=== PATIENT | male | born 1965 | race Caucasian/White ===

== ENCOUNTER 2019-01-28 15:55 | Inpatient (IN) ==
[2019-01-28] MEDS ORDERED: Aspirin 81 MG TAB.CHEW PO ONE (16:14)
[2019-01-28] MEDS ORDERED: Nitroglycerin 0.4 MG TAB.SUBL SL PRN (16:14)
[2019-01-28 16:35] LABS: Basophils # 0.1 K/mcL (0.0-0.2); Eosinophils # 0.3 K/mcL (0.0-0.6); Eosinophils % 5.5 %; Hematocrit 46.3 % (37.5-50.1); Hemoglobin 16.3 g/dL (12.9-16.9); Immature Granulocytes % 0.5 % (0-4); Lymphocytes # 1.8 K/mcL (0.6-4.6); Lymphocytes % 30.1 %; Mean Corpuscular HGB Conc 35.2 g/dL (31.6-35.5); Mean Corpuscular Hemoglobin 31.7 pg (28.0-33.3); Mean Corpuscular Volume 89.9 fL (83.0-100.0); Mean Platelet Volume 10.2 fL (9.4-12.4); Monocytes # 0.4 K/mcL (0.0-1.3); Monocytes % 6.9 %; Neutrophils # 3.3 K/mcL (1.6-8.9); Platelet Count 182 K/mcL (140-400); Red Blood Count 5.15 M/mcL (4.19-5.50); Red Cell Distribution Width 12.3 % (11.5-14.5); White Blood Count 5.8 K/mcL (4.3-11.1)
[2019-01-28 16:41] LABS: Prothrombin Time 11.5 Seconds (9.4-12.1)
[2019-01-28 16:44] LABS: Activated Partial Thrombo Time 32.4 Seconds (26.0-36.0)
[2019-01-28 16:56] LABS: Alanine Aminotransferase 21 Units/L (7-52); Albumin 4.7 g/dL (3.5-5.7); Albumin/Globulin Ratio 1.7 (1.1-2.2); Alkaline Phosphatase 48 Units/L (34-104); Aspartate Amino Transferase 21 Units/L (13-39); BUN/Creatinine Ratio 19 (6-26); Bilirubin,Direct 0.1 mg/dL (0.0-0.2); Bilirubin,Total 1.1 mg/dL (0.3-1.0); Blood Urea Nitrogen 16 mg/dL (6-20); Calcium 9.5 mg/dL (8.6-10.3); Carbon Dioxide 25 mEq/L (23-29); Chloride 102 mEq/L (98-107); Globulin 2.8 g/dL (2.4-3.5); Glucose 199 mg/dL (70-105); Lipase 38 Units/L (11-82); Osmolality,Calculated 295 (280-300); Sodium 139 mEq/L (136-145); Total Protein 7.5 g/dL (6.4-8.9); Troponin I 0.15 ng/mL (< 0.04); eGFR For African Americans > 60 (> 60); eGFR For Non-African Americans > 60 (> 60)
[2019-01-28] MEDS ORDERED: *HR* Heparin 5,000 UNIT/ML VIAL IVP PRN (16:57)
[2019-01-28] MEDS ORDERED: *HR* Heparin 5,000 UNIT/ML VIAL IVP ONE (16:57)
[2019-01-28 17:07] LABS: Heparin anti-factor XA UFH 0.01 IU/mL (0.30-0.70)
--- NOTE | 2019-01-28 17:10 | Emergency Department Note ---
Disposition Clinical Impression: NSTEMI (non-ST elevated myocardial infarction) Disposition: Admitted As Inpatient Condition: Fair Referrals: NONE,PCP [Primary Care Provider] - Time of Disposition: 18:08 Chest Pain HPI - General Chief Complaint: ED Chest Pain Stated Complaint: CP Time Seen by Provider: 01/28/19 15:57 Source: patient Mode of arrival: ambulatory Limitations: no limitations Vital Signs Reviewed: Yes Nursing Notes Reviewed: Yes - History of Present Illness HPI Narrative: 53-year-old male presented to the emergency department with chest pain. Patient does have history of four-vessel bypass he recently had Done in June they said only one vessel is still good of the bypass. Said this has been going on for a week wakes him up from sleep takes 2 nitroglycerin and then it goes away. Also occurs during exertion. Says it comes and goes randomly. He said he had earlier today this will cause him to come in. He has no nausea no vomiting. Said this feels like previous heart attacks occurred on his right side of his heart according to the patient. Patient says he has multiple since he cannot remember how many stents he has. He does take aspirin and Plavix that he has been taken them regularly. He did not take nitroglycerin today. He could does not currently have chest pain while in the emergency department this time but says it comes and goes and could randomly get any time. Severity scale (1-10): 0 - Related Data Home Medications Medication Instructions Recorded Confirmed Gabapentin [Neurontin] 800 mg PO TID 02/27/16 07/05/18 Cyclobenzaprine [Flexeril] 10 mg PO TID 07/05/18 07/05/18 Metoprolol XL (24 HR) Succ [Toprol 25 mg PO DAILY 07/05/18 07/05/18 Xl] hydrOXYzine HCl [Hydroxyzine HCl] 25 mg PO Q8H PRN 07/05/18 07/05/18 Previous Rx's Medication Instructions Recorded Aspirin Enteric Coated [Aspirin EC] 81 mg PO DAILY #30 tablet.dr 02/28/16 Nitroglycerin [Nitrostat] 0.4 mg SL PRN PRN #30 tab.subl 02/28/16 Ticagrelor [Brilinta] 90 mg PO BID #60 tablet 02/28/16 Allergies Allergy/AdvReac Type Severity Reaction Status Date / Time quinapril AdvReac Hypotension Verified 01/28/19 16:03 IVP DYE Allergy Hives Uncoded 01/28/19 16:03 All systems ED: reviewed and negative except as stated. Review of Systems: As Per HPI Chest Pain PMH - Past Medical History Medical history: Reports: cardiomyopathy, coronary artery disease, diabetes, fibromyalgia, GERD, hyperlipidemia, hypertension, myocardial infarction Surgical history: Reports: angioplasty/stent, coronary bypass (CABG) Psychiatric history: Reports: no psych history - Social History Smoking Status: Never smoker Alcohol use: Reports: none Drug use: Reports: none Physical Exam - General Limitations: no limitations General appearance: alert, in no apparent distress - Head Head exam: atraumatic, normocephalic, normal inspection - Eye Eye exam: Present: normal appearance, PERRL, EOMI - ENT ENT exam: normal exam, normal oropharynx, mucous membranes moist - Neck Neck exam: Present: normal inspection, full ROM, trachea midline - Chest Chest inspection: Present: normal inspection, symmetric chest wall rise - Respiratory Respiratory exam: Present: normal lung sounds bilaterally - Cardiovascular Cardiovascular exam: Present: regular rate, normal rhythm, normal heart sounds - Abdominal Exam Abdominal exam: Present: soft, Non-Tender, normal bowel sounds. Absent: tenderness, distention, guarding, rebound, rigidity - Extremities Exam Extremities exam: Present: normal inspection, full ROM. Absent: tenderness, pedal edema - Back Exam Back exam: Present: normal inspection, full ROM. Absent: tenderness, CVA tenderness (R), CVA tenderness (L) - Neurological Exam Neurological exam: Present: alert, oriented X3 - Skin Skin exam: Present: warm, dry, intact, normal color Course Course Narrative: Patient presents here with chest pain. We will get basic chest pain workup including troponin EKG chest x-ray CBC and BMP BNP. We will give him aspirin a nd nitroglycerin. If he has chest pain we will give the nitroglycerin. - Reevaluation(s) Reevaluation #1: First EKG came back showing some ST changes or elevations in V1 V2 but no reciprocal changes this is new compared to old EKG. So we repeat one approxim ately 45 minutes later that showed the continued ST elevations with mild changes in the inferior leads not fully depressions or several changes at this time but did have some T-wave inversions in the lateral leads V4 V5 V6. I called and spoke with Dr. Pedersen who recommended I run this by school teacher Dr. Peace who was paged this time currently awaiting his recommendations. Chest pain at this time Time: 17:00 - Consultations Consultation #1: Spoke with interventional cardiology Dr. Peace who said that he is not having active chest pain is no recent taken to the [facility] emergently at this time. Call them if anything changes she agrees with Dr. Pedersen's recommendations of medical management including heparin and nitroglycerin as needed for chest pain. Time: 17:31 Vital Signs Temperature 98.6 F 01/28/19 15:57 Pulse Rate 92 01/28/19 15:57 Respiratory Rate 20 01/28/19 15:57 Blood Pressure 148/93 01/28/19 15:57 O2 Sat by Pulse Oximetry 99 01/28/19 15:57 Temperature 97.6 F 01/28/19 19:06 Pulse Rate 85 01/28/19 19:06 Respiratory Rate 16 01/28/19 19:06 Blood Pressure 127/87 01/28/19 19:06 O2 Sat by Pulse Oximetry 96 01/28/19 19:06 Oxygen Delivery Oxygen Delivery Room Air Chest Pain - MDM Narrative Medical decision making narrative: Due to patient's cardiac history only having one good open bypass with the change in EKGs spoke with cardiology who recommended heparin therapy which we started. He still not having chest pain at this time. Spoke with interventional cardiology who again agreed did not need to go to [facility]. Started patient on heparin he did not get any nitroglycerin did receive full dose aspirin. Spoke with the hospitalist Dr. Pittman who agreed to admit the patient to their service with cardiology consultation. Patient mid in stable condition. Chest X-Ray 01/28/19 15:57 IMPRESSION: No acute process. D/ / 01/28/2019 16:37:54 Gopi Lee MD / [facility] Interpreting Provider: Gopi Lee MD - Medical Records Medical records reviewed: Yes I reviewed the patient's medical records. - Lab Data Lab results reviewed: Yes I reviewed the patient's lab results. Result diagrams: 01/28/19 18:11 01/28/19 16:03 Lab Results 01/28/19 01/28/19 01/28/19 Range/Units 16:03 16:03 16:03 WBC (4.3-11.1) K/mcL RBC (4.19-5.50) M/mcL Hgb (12.9-16.9) g/dL Hct (37.5-50.1) % MCV (83.0-100.0) fL MCH (28.0-33.3) pg MCHC (31.6-35.5) g/dL RDW (11.5-14.5) % Plt Count (140-400) K/mcL MPV (9.4-12.4) fL Immature Gran % (0-4) % Seg Neutrophils % % Lymphocytes % % Monocytes % % Eosinophils % % Basophils % % Neutrophils # (1.6-8.9) K/mcL Lymphocytes # (0.6-4.6) K/mcL Monocytes # (0.0-1.3) K/mcL Eosinophils # (0.0-0.6) K/mcL Basophils # (0.0-0.2) K/mcL PT 11.5 (9.4-12.1) Seconds INR 1.0 APTT 32.4 (26.0-36.0) Seconds Heparin Anti-Xa, Unfract 0.01 L (0.30-0.70) IU/mL Sodium 139 (136-145) mEq/L Potassium 4.0 (3.5-5.1) mEq/L Chloride 102 (98-107) mEq/L Carbon Dioxide 25 (23-29) mEq/L BUN 16 (6-20) mg/dL Creatinine 0.86 (0.70-1.30) mg/dL Est GFR ( Amer) > 60 (> 60) Est GFR (Non-Af Amer) > 60 (> 60) BUN/Creatinine Ratio 19 (6-26) Glucose 199 H (70-105) mg/dL Calculated Osmolality 295 (280-300) Calcium 9.5 (8.6-10.3) mg/dL Total Bilirubin 1.1 H (0.3-1.0) mg/dL Direct Bilirubin 0.1 (0.0-0.2) mg/dL Indirect Bilirubin 1.0 (0.0-1.2) mg/dL AST 21 (13-39) Units/L ALT 21 (7-52) Units/L Alkaline Phosphatase 48 (34-104) Units/L Troponin I 0.15 H* (< 0.04) ng/mL B-Natriuretic Peptide 133 H (Less than 100) pg/mL Serum Total Protein 7.5 (6.4-8.9) g/dL Albumin 4.7 (3.5-5.7) g/dL Globulin 2.8 (2.4-3.5) g/dL Albumin/Globulin Ratio 1.7 (1.1-2.2) Lipase 38 (11-82) Units/L 01/28/19 01/28/19 Range/Units 16:03 18:11 WBC 5.8 7.0 (4.3-11.1) K/mcL RBC 5.15 4.85 (4.19-5.50) M/mcL Hgb 16.3 15.1 (12.9-16.9) g/dL Hct 46.3 43.6 (37.5-50.1) % MCV 89.9 89.9 (83.0-100.0) fL MCH 31.7 31.1 (28.0-33.3) pg MCHC 35.2 34.6 (31.6-35.5) g/dL RDW 12.3 12.3 (11.5-14.5) % Plt Count 182 193 (140-400) K/mcL MPV 10.2 10.4 (9.4-12.4) fL Immature Gran % 0.5 0.3 (0-4) % Seg Neutrophils % 56.0 53.4 % Lymphocytes % 30.1 30.5 % Monocytes % 6.9 9.8 % Eosinophils % 5.5 5.1 % Basophils % 1.0 0.9 % Neutrophils # 3.3 3.8 (1.6-8.9) K/mcL Lymphocytes # 1.8 2.2 (0.6-4.6) K/mcL Monocytes # 0.4 0.7 (0.0-1.3) K/mcL Eosinophils # 0.3 0.4 (0.0-0.6) K/mcL Basophils # 0.1 0.1 (0.0-0.2) K/mcL PT (9.4-12.1) Seconds INR APTT (26.0-36.0) Seconds Heparin Anti-Xa, Unfract (0.30-0.70) IU/mL Sodium (136-145) mEq/L Potassium (3.5-5.1) mEq/L Chloride (98-107) mEq/L Carbon Dioxide (23-29) mEq/L BUN (6-20) mg/dL Creatinine (0.70-1.30) mg/dL Est GFR ( Amer) (> 60) Est GFR (Non-Af Amer) (> 60) BUN/Creatinine Ratio (6-26) Glucose (70-105) mg/dL Calculated Osmolality (280-300) Calcium (8.6-10.3) mg/dL Total Bilirubin (0.3-1.0) mg/dL Direct Bilirubin (0.0-0.2) mg/dL Indirect Bilirubin (0.0-1.2) mg/dL AST (13-39) Units/L ALT (7-52) Units/L Alkaline Phosphatase (34-104) Units/L Troponin I (< 0.04) ng/mL B-Natriuretic Peptide (Less than 100) pg/mL Serum Total Protein (6.4-8.9) g/dL Albumin (3.5-5.7) g/dL Globulin (2.4-3.5) g/dL Albumin/Globulin Ratio (1.1-2.2) Lipase (11-82) Units/L - Radiology Data Radiology results reviewed: Yes I reviewed the patient's radiology results. - EKG Data EKG attestation: Yes I reviewed and interpreted this EKG. EKG results narrative: EKG #1 done at 1602 review myself and attending shows sinus rhythm at a rate of 98, NC interval 55, QRS 92, QTC 456. Does have ST elevations in V2 V3 with no reciprocal changes no other T-wave abnormalities no other signs of ischemia. No signs of hypertrophy, heart strain, heart block. No WPW/Brugada/HOCM. These are new compared to old EKG done 07/05/18. EKG #2 done at 1651 review myself and attending shows sinus rhythm rate of 91, NC 170, QRS 94, QTc 445. There is continued ST elevations in V2 and V3 again with possible early changes in the inferior leads of 2 and 3 but not fully making depressions to make reciprocal changes. Also no flipped T waves in the lateral leads V4 V5 V6. This is change based off previous EKG Heart Score - Score History: Moderately Suspicious EKG: Significant ST-Depression Age: 45-65 Risk Factors: Equal/Greater than 3 risk factor or history of atherosclerotic disease Troponin: 1-3x normal limit HEART Score Total: 7
[2019-01-28] MEDS: Heparin 25,000 UNIT/250 ML D5W 25,000 UNIT/250 ML IV.SOLN IVC SCH (17:34)
[2019-01-28] MEDS ORDERED: Naloxone 0.4 MG/ML INJ IVP PRN (17:49)
--- NOTE | 2019-01-28 17:49 | Emergency Department Note ---
Disposition Clinical Impression: NSTEMI (non-ST elevated myocardial infarction) Disposition: Admitted As Inpatient Condition: Good Forms: ED Satisfaction Letter Time of Disposition: 17:49 General Adult HPI - General Chief complaint: ED Chest Pain Stated complaint: CP Time Seen by Provider: 01/28/19 15:57 Source: patient Mode of arrival: ambulatory Limitations: no limitations - History of Present Illness Pain Scale: 0 - Related Data Home Medications Medication Instructions Recorded Confirmed Gabapentin [Neurontin] 800 mg PO TID 02/27/16 07/05/18 Cyclobenzaprine [Flexeril] 10 mg PO TID 07/05/18 07/05/18 Metoprolol XL (24 HR) Succ [Toprol 25 mg PO DAILY 07/05/18 07/05/18 Xl] hydrOXYzine HCl [Hydroxyzine HCl] 25 mg PO Q8H PRN 07/05/18 07/05/18 Previous Rx's Medication Instructions Recorded Aspirin Enteric Coated [Aspirin EC] 81 mg PO DAILY #30 tablet.dr 02/28/16 Nitroglycerin [Nitrostat] 0.4 mg SL PRN PRN #30 tab.subl 02/28/16 Ticagrelor [Brilinta] 90 mg PO BID #60 tablet 02/28/16 Allergies Allergy/AdvReac Type Severity Reaction Status Date / Time quinapril AdvReac Hypotension Verified 01/28/19 16:03 IVP DYE Allergy Hives Uncoded 01/28/19 16:03 Past Medical History - Past Medical History Medical history: Reports: cardiomyopathy, coronary artery disease, diabetes, fibromyalgia, GERD, hyperlipidemia, hypertension, myocardial infarction Surgical history: Reports: angioplasty/stent, coronary bypass (CABG) Psychiatric history: Reports: no psych history - Social History Smoking Status: Never smoker Smokeless Tobacco Status: No Alcohol use: Reports: none Drug use: Reports: none Physical Exam - General Limitations: no limitations General appearance: alert, in no apparent distress Course Vital Signs Temperature 98.6 F 01/28/19 15:57 Pulse Rate 92 01/28/19 15:57 Respiratory Rate 20 01/28/19 15:57 Blood Pressure 148/93 01/28/19 15:57 O2 Sat by Pulse Oximetry 99 01/28/19 15:57 Temperature 98.6 F 01/28/19 15:57 Pulse Rate 86 01/28/19 17:35 Respiratory Rate 16 01/28/19 17:35 Blood Pressure 125/81 01/28/19 17:35 O2 Sat by Pulse Oximetry 97 01/28/19 17:35 Oxygen Delivery Oxygen Delivery Room Air Medical Decision Making - Lab Data Result diagrams: 01/28/19 16:03 01/28/19 16:03 Lab Results 01/28/19 01/28/19 01/28/19 Range/Units 16:03 16:03 16:03 WBC (4.3-11.1) K/mcL RBC (4.19-5.50) M/mcL Hgb (12.9-16.9) g/dL Hct (37.5-50.1) % MCV (83.0-100.0) fL MCH (28.0-33.3) pg MCHC (31.6-35.5) g/dL RDW (11.5-14.5) % Plt Count (140-400) K/mcL MPV (9.4-12.4) fL Immature Gran % (0-4) % Seg Neutrophils % % Lymphocytes % % Monocytes % % Eosinophils % % Basophils % % Neutrophils # (1.6-8.9) K/mcL Lymphocytes # (0.6-4.6) K/mcL Monocytes # (0.0-1.3) K/mcL Eosinophils # (0.0-0.6) K/mcL Basophils # (0.0-0.2) K/mcL PT 11.5 (9.4-12.1) Seconds INR 1.0 APTT 32.4 (26.0-36.0) Seconds Heparin Anti-Xa, Unfract 0.01 L (0.30-0.70) IU/mL Sodium 139 (136-145) mEq/L Potassium 4.0 (3.5-5.1) mEq/L Chloride 102 (98-107) mEq/L Carbon Dioxide 25 (23-29) mEq/L BUN 16 (6-20) mg/dL Creatinine 0.86 (0.70-1.30) mg/dL Est GFR ( Amer) > 60 (> 60) Est GFR (Non-Af Amer) > 60 (> 60) BUN/Creatinine Ratio 19 (6-26) Glucose 199 H (70-105) mg/dL Calculated Osmolality 295 (280-300) Calcium 9.5 (8.6-10.3) mg/dL Total Bilirubin 1.1 H (0.3-1.0) mg/dL Direct Bilirubin 0.1 (0.0-0.2) mg/dL Indirect Bilirubin 1.0 (0.0-1.2) mg/dL AST 21 (13-39) Units/L ALT 21 (7-52) Units/L Alkaline Phosphatase 48 (34-104) Units/L Troponin I 0.15 H* (< 0.04) ng/mL B-Natriuretic Peptide 133 H (Less than 100) pg/mL Serum Total Protein 7.5 (6.4-8.9) g/dL Albumin 4.7 (3.5-5.7) g/dL Globulin 2.8 (2.4-3.5) g/dL Albumin/Globulin Ratio 1.7 (1.1-2.2) Lipase 38 (11-82) Units/L 01/28/19 Range/Units 16:03 WBC 5.8 (4.3-11.1) K/mcL RBC 5.15 (4.19-5.50) M/mcL Hgb 16.3 (12.9-16.9) g/dL Hct 46.3 (37.5-50.1) % MCV 89.9 (83.0-100.0) fL MCH 31.7 (28.0-33.3) pg MCHC 35.2 (31.6-35.5) g/dL RDW 12.3 (11.5-14.5) % Plt Count 182 (140-400) K/mcL MPV 10.2 (9.4-12.4) fL Immature Gran % 0.5 (0-4) % Seg Neutrophils % 56.0 % Lymphocytes % 30.1 % Monocytes % 6.9 % Eosinophils % 5.5 % Basophils % 1.0 % Neutrophils # 3.3 (1.6-8.9) K/mcL Lymphocytes # 1.8 (0.6-4.6) K/mcL Monocytes # 0.4 (0.0-1.3) K/mcL Eosinophils # 0.3 (0.0-0.6) K/mcL Basophils # 0.1 (0.0-0.2) K/mcL PT (9.4-12.1) Seconds INR APTT (26.0-36.0) Seconds Heparin Anti-Xa, Unfract (0.30-0.70) IU/mL Sodium (136-145) mEq/L Potassium (3.5-5.1) mEq/L Chloride (98-107) mEq/L Carbon Dioxide (23-29) mEq/L BUN (6-20) mg/dL Creatinine (0.70-1.30) mg/dL Est GFR ( Amer) (> 60) Est GFR (Non-Af Amer) (> 60) BUN/Creatinine Ratio (6-26) Glucose (70-105) mg/dL Calculated Osmolality (280-300) Calcium (8.6-10.3) mg/dL Total Bilirubin (0.3-1.0) mg/dL Direct Bilirubin (0.0-0.2) mg/dL Indirect Bilirubin (0.0-1.2) mg/dL AST (13-39) Units/L ALT (7-52) Units/L Alkaline Phosphatase (34-104) Units/L Troponin I (< 0.04) ng/mL B-Natriuretic Peptide (Less than 100) pg/mL Serum Total Protein (6.4-8.9) g/dL Albumin (3.5-5.7) g/dL Globulin (2.4-3.5) g/dL Albumin/Globulin Ratio (1.1-2.2) Lipase (11-82) Units/L Attestation Statement - Attestation Attestation: I reviewed the residents documentation and agree with the residents assessment and plan of care. I have personally had face to face time with the patient. (Brief History, Brief Exam, and MDM) I personally supervised and was present for the rust/critical portions of the following procedures completed by the resident: EKG 53 year old male presents to the ED with complaints of chest pain and is now chest pain free. Brayden states that he had 4 vesse; CABG with a recent cardiac catherization in jun that showed woresning 3 vessels wit one vessel that was patent. Brayden has an evolving EKG concerning for ischemic and we have consulted Dr. Peace from interventional cardiology who thinks he will likley need a catheriztion tomorrow. heparinize and admit to medicine for NSTEMI
--- NOTE | 2019-01-28 18:12 | Internal Med History&Physical ---
Date of Encounter: 01/28/19 Time of Encounter: 18:10 Internal Medicine - H&P: HPI Chief complaint: Chest pain for a week History of present illness: Mr. Arnett is a 53 year old male with pmh of CABG , CAD in june s/p cath where he says he was only found to have one patent vessel during the cath presenting with complaints of chest pain of a week's duration. Patient describes the chest pain as squeezing and pressure like and the pain woke him up from sleep. He has taken nitroglycerins in the past week with some relief. He called his medical laboratory manager who told him to come to the ER. He denies any fevers, chills, nausea or vomiting. He admits to occasional shortness of breath. In the ER, a chest xray showed no acute process, he reportely had some new T wave inversions, and ST segment elevations in V2 and V3. Cardiology was consulted and he was started on a heparin drip. He is being admitted for further management Past Med Surg Social Fam HX - Past Medical History Medical history: cardiomyopathy, coronary artery disease, diabetes, fibromyalgia, GERD, hyperlipidemia, hypertension, myocardial infarction Psychiatric history: no psych history - Past Surgical History Surgical History: angioplasty/stent, coronary bypass (CABG) - Social History Smoking Status: Never smoker Smokeless Tobacco Status: No Alcohol use: none Drug use: none Internal Medicine - H&P: Meds RX: Gabapentin [Neurontin] 800 mg PO TID 02/27/16 [History] RX: Aspirin Enteric Coated [Aspirin EC] 81 mg PO DAILY #30 tablet.dr 02/28/16 [Rx] RX: Nitroglycerin [Nitrostat] 0.4 mg SL PRN PRN #30 tab.subl 02/28/16 [Rx] RX: Ticagrelor [Brilinta] 90 mg PO BID #60 tablet 02/28/16 [Rx] RX: Cyclobenzaprine [Flexeril] 10 mg PO TID 07/05/18 [History] RX: Metoprolol XL (24 HR) Succ [Toprol Xl] 25 mg PO DAILY 07/05/18 [History] RX: hydrOXYzine HCl [Hydroxyzine HCl] 25 mg PO Q8H PRN 07/05/18 [History] Allergy/AdvReac Type Severity Reaction Status Date / Time quinapril AdvReac Hypotension Verified 01/28/19 16:03 IVP DYE Allergy Hives Uncoded 01/28/19 16:03 All Systems PM: A 10-system review of systems was performed and is negative for pertinent fi ndings except as documented above in the HPI. - Constitutional Constitutional: no chills, no fever(s), no night sweats - EENT Eyes: no change in vision, no discharge, no pain, no photophobia Ears: no ear discharge, no ear pain, no tinnitus Nose, mouth and throat: no dysphagia, no nasal discharge, no neck pain, no sore throat - Cardiovascular Cardiovascular ROS IM: chest pain, dyspnea, no diaphoresis, no lightheadedness, no palpitations, no syncope - Respiratory Respiratory: no cough, no dyspnea, no wheezing, no excessive phlegm production - Gastrointestinal Gastrointestinal: no abdominal pain, no diarrhea, no hematemesis, no hematochezia, no melena, no nausea, no vomiting - Musculoskeletal Musculoskeletal ROS IM: no numbness, no tingling - Integumentary Integumentary IM: no rash, no unusual bruising - Neurological Neurological ROS: no confusion, no convulsions, no focal weakness, no numbness, no tingling, no tremor(s) - Hematologic/Lymphatic Hematologic/Lymphatic: no easy bruising - Constitutional Vitals: Temp Pulse Resp BP Pulse Ox 98.6 F 85 16 127/88 98 01/28/19 15:57 01/28/19 17:44 01/28/19 17:44 01/28/19 17:44 01/28/19 17:44 Exam: NAD - Head Head exam: Present: atraumatic, normocephalic - Eye Eye exam: Present: PERRL, conjuntiva pink, sclera anicteric Pupils: Present: PERRL - Neck Neck exam general surgery: Present: supple, trachea midline. Absent: lymphadenopathy - Respiratory Respiratory exam: Present: CTAB. Absent: accessory muscle use, rales, rhonchi, wheezes - Cardiovascular Cardiovascular exam: Present: RRR, +S1, +S2. Absent: diastolic murmur, gallop, rubs, systolic murmur - GI/Abdominal GI/Abdominal exam: Present: normal bowel sounds, soft, no peritoneal signs. Absent: distended, tenderness - Extremities Exam Extremities exam: Present: warm, radial pulses palpable and symmetrical. Absent: calf tenderness, cyanotic, pedal edema - Neurological Exam Neurological exam: Present: CN II-XII intact, oriented X3, no focal deficits. Absent: pronater drift, facial droop, speech deficit - Skin Skin exam: Present: dry, intact Internal Med - H&P Results - Labs CBC & Chem 7: 01/28/19 18:11 01/28/19 16:03 Labs: Short CBC 01/28/19 Range/Units 16:03 WBC 5.8 (4.3-11.1) K/mcL Hgb 16.3 (12.9-16.9) g/dL Hct 46.3 (37.5-50.1) % Plt Count 182 (140-400) K/mcL Neutrophils # 3.3 (1.6-8.9) K/mcL BMP 01/28/19 16:03 Sodium 139 Potassium 4.0 Chloride 102 Carbon Dioxide 25 BUN 16 Creatinine 0.86 Glucose 199 H Calcium 9.5 Cardiac Enzymes 01/28/19 Range/Units 16:03 Troponin I 0.15 H* (< 0.04) ng/mL Liver Function 01/28/19 Range/Units 16:03 Total Bilirubin 1.1 H (0.3-1.0) mg/dL Direct Bilirubin 0.1 (0.0-0.2) mg/dL AST 21 (13-39) Units/L ALT 21 (7-52) Units/L Alkaline Phosphatase 48 (34-104) Units/L Albumin 4.7 (3.5-5.7) g/dL - Impressions ITS Impressions Chest X-Ray 01/28/19 15:57 IMPRESSION: No acute process. D/ / 01/28/2019 16:37:54 Gopi Lee MD / [facility] Interpreting Provider: Gopi Lee MD - Assessment and Plan (1) NSTEMI (non-ST elevated myocardial infarction) Current Visit: Yes Status: Acute Assessment and plan: Pt comes in with typical chest pain in seting of CABG/ CAD with [place] in June Troponis elevated with new T wave inversions. Started on heparin drip Cardiology consulted. Continue aspirin and plavix. Obtain 2D echo. [place] in am (2) Hypertension Current Visit: Yes Status: Chronic Assessment and plan: Stable. Continue home meds Qualifiers: Hypertension type: essential hypertension Qualified Code(s): I10 - Essential (primary) hypertension (3) Ischemic cardiomyopathy Current Visit: Yes Status: Chronic Assessment and plan: Last echo showed EF 30-35% No signs of volume overload (4) DVT prophylaxis Current Visit: Yes Status: Acute Assessment and plan: Heparin drip - Time Spent With Patient Total time spent is greater than 50% in coordination of care (as documented) at patient's floor/unit and/or counseling patient:
[2019-01-28 18:28] LABS: Basophils # 0.1 K/mcL (0.0-0.2); Basophils % 0.9 %; Eosinophils # 0.4 K/mcL (0.0-0.6); Eosinophils % 5.1 %; Hematocrit 43.6 % (37.5-50.1); Hemoglobin 15.1 g/dL (12.9-16.9); Immature Granulocytes % 0.3 % (0-4); Lymphocytes # 2.2 K/mcL (0.6-4.6); Lymphocytes % 30.5 %; Mean Corpuscular HGB Conc 34.6 g/dL (31.6-35.5); Mean Corpuscular Hemoglobin 31.1 pg (28.0-33.3); Mean Corpuscular Volume 89.9 fL (83.0-100.0); Mean Platelet Volume 10.4 fL (9.4-12.4); Monocytes # 0.7 K/mcL (0.0-1.3); Monocytes % 9.8 %; Neutrophils # 3.8 K/mcL (1.6-8.9); Platelet Count 193 K/mcL (140-400); Red Blood Count 4.85 M/mcL (4.19-5.50); Red Cell Distribution Width 12.3 % (11.5-14.5); Segmented Neutrophils % 53.4 %
[2019-01-28] MEDS ORDERED: Morphine Sulfate 2 MG/ML SYRINGE IVP ONE (19:32)
[2019-01-28] MEDS ORDERED: *HR* Ticagrelor 90 MG TABLET PO SCH (21:00)
[2019-01-29 00:49] LABS: BUN/Creatinine Ratio 21 (6-26); Blood Urea Nitrogen 17 mg/dL (6-20); Carbon Dioxide 23 mEq/L (23-29); Chloride 105 mEq/L (98-107); Glucose 149 mg/dL (70-105); Magnesium 1.9 mg/dL (1.6-2.6); Osmolality,Calculated 290 (280-300); Phosphorous 3.5 mg/dL (2.7-4.5); Potassium 3.9 mEq/L (3.5-5.1); Sodium 138 mEq/L (136-145); Triglycerides 799 mg/dL (< 150); eGFR For African Americans > 60 (> 60); eGFR For Non-African Americans > 60 (> 60)
[2019-01-29 00:50] LABS: Chol/HDL Ratio 7.7 (0-4.9); Cholesterol 224 mg/dL (< 200); HDL Cholesterol 29 mg/dL (40-59)
[2019-01-29] MEDS: *HR* Heparin 5,000 UNIT/ML VIAL IVP PRN ×4 (01:01→21:03)
[2019-01-29] MEDS: Metoprolol XL (24 HR) Succ 25 MG TAB.ER.24H PO SCH (08:30)
[2019-01-29] MEDS: Aspirin Enteric Coated 81 MG Tablet PO SCH (08:30)
--- NOTE | 2019-01-29 11:27 | Cardiology Consult Note ---
Date of Encounter: 01/29/19 Time of Encounter: 11:30 Assessment and Plan (1) NSTEMI (non-ST elevated myocardial infarction) Current Visit: Yes Status: Acute A/R/B of emergent LHC dw patient including 1% chance of recurrent TX//CVA/CABG/KARLA/bleeding. Pt aware and agreeable with elective LHC. He is comfortable on heparin drip without s/sx of cardiogenic shock or murmur. Given IV dye allergy, will premedicate him overnight with steroids and plan for cath tomorrow with my colleague. TTE ordered. (2) Hypertension Current Visit: Yes Status: Chronic controlled Qualifiers: Hypertension type: essential hypertension Qualified Code(s): I10 - Essential (primary) hypertension Discussion w patient/family: The assessment and plan as outlined above was discussed with the patient and/or family members who expressed understanding and agreement. All questions were answered. Thank you for involving us in the care of your patient. Please call with any questions. History of Present Illness Consult date: 01/29/19 Consult reason: nstemi Chief complaint: chest pain History of present illness: Mr. Arnett is a 53 year old male with history of CAD sp CABG with PCI ostial proximal LCx 06/2018 and patent STONE LAD presents with crescendo exertional chest pain over last week recently requiring 2 NTG and occurring daily with minimal physical activity. He was switched from brilinta to plavix. He notes it similar to his TX with pressure, severe intensity and associated with dyspnea. He otherwise has no concerns including bleeding, melena or hematochezia. He does have an IV dye allergy. Past Med Surg Social Fam HX - Past Medical History Medical history: cardiomyopathy, coronary artery disease, diabetes, fibro myalgia, GERD, hyperlipidemia, hypertension, myocardial infarction Psychiatric history: no psych history - Past Surgical History Surgical History: angioplasty/stent, coronary bypass (CABG) - Social History Smoking Status: Never smoker Smokeless Tobacco Status: No Alcohol use: none Drug use: none - Family History Mother Living Status: Age at : 86 Cause of : old age Father Living Status: Age at : 66 Cause of : heart attack Medications and Allergies Gabapentin [Neurontin] 800 mg PO TID 02/27/16 [History] Aspirin Enteric Coated [Aspirin EC] 81 mg PO DAILY #30 tablet. 02/28/16 [Rx] Nitroglycerin [Nitrostat] 0.4 mg SL PRN PRN #30 tab.subl 02/28/16 [Rx] Ticagrelor [Brilinta] 90 mg PO BID #60 tablet 02/28/16 [Rx] Cyclobenzaprine [Flexeril] 10 mg PO TID 07/05/18 [History] Metoprolol XL (24 HR) Succ [Toprol Xl] 25 mg PO DAILY 07/05/18 [History] hydrOXYzine HCl [Hydroxyzine HCl] 25 mg PO Q8H PRN 07/05/18 [History] Allergy/AdvReac Type Severity Reaction Status Date / Time quinapril AdvReac Hypotension Verified 01/28/19 16:03 IVP DYE Allergy Hives Uncoded 01/28/19 16:03 All Systems Review: The remainder of the systems were reviewed and are negative - Constitutional Constitutional: no chills, no fever(s) - EENT Eyes: no blurred vision, no loss of vision Nose, mouth and throat: no bleeding gums, no epistaxis - Cardiovascular Cardiovascular: chest pain with exertion, dyspnea on exertion - Respiratory Respiratory: no hemoptysis, no wheezing - Gastrointestinal Gastrointestinal: no hematemesis, no hematochezia - Genitourinary Genitourinary: no hematuria, no nocturia - Musculoskeletal Musculoskeletal: no muscle cramps, no muscle weakness - Integumentary Integumentary: no rash, no unusual bruising - Neurological Neurological: no syncope, no tingling - Psychiatric Psychiatric: no hallucinations, no panic attacks - Hematological/Lymphatic Hematologic/Lymphatic: no easy bleeding, no easy bruising Physical Examination General: Conversant HEENT: Atraumatic Neck: No JVD Cardiac: Reg Rate and Rhythm Lungs: Normal Breath Sounds Neuro: Alert and responsive Abdomen: Soft Skin: No rashes noted on visualized skin Musculoskeletal: No Chest Wall Tenderness Extremities: No Edema Results 01/28/19 18:11 01/29/19 00:10 Lab Results 01/28/19 01/28/19 01/28/19 16:03 16:03 16:03 WBC Hgb Hct Plt Count INR 1.0 APTT 32.4 Sodium 139 Potassium 4.0 Chloride 102 Carbon Dioxide 25 BUN 16 Creatinine 0.86 Glucose 199 H Calcium 9.5 Magnesium Total Bilirubin 1.1 H AST 21 ALT 21 Alkaline Phosphatase 48 Troponin I 0.15 H* B-Natriuretic Peptide 133 H Lipase 38 01/28/19 01/28/19 01/29/19 16:03 18:11 00:10 WBC 5.8 7.0 Hgb 16.3 15.1 Hct 46.3 43.6 Plt Count 182 193 INR APTT Sodium Potassium Chloride Carbon Dioxide BUN Creatinine Glucose Calcium Magnesium Total Bilirubin AST ALT Alkaline Phosphatase Troponin I 0.17 H* B-Natriuretic Peptide Lipase 01/29/19 01/29/19 00:10 06:24 WBC Hgb Hct Plt Count INR APTT Sodium 138 Potassium 3.9 Chloride 105 Carbon Dioxide 23 BUN 17 Creatinine 0.82 Glucose 149 H Calcium 9.0 Magnesium 1.9 Total Bilirubin AST ALT Alkaline Phosphatase Troponin I 0.14 H* B-Natriuretic Peptide Lipase - EKG Interpretation EKG results cardiology: sinus rhythm (anteroseptal TX, old.) Consult Discharge Plan - Plan Referrals: NONE,PCP [Primary Care Provider] -
--- NOTE | 2019-01-29 12:59 | Internal Med Progress Note ---
Hospitalist Progress Note - Encounter Date of Encounter: 01/29/19 Time of Encounter: 10:00 - Subjective Interval History: No acute events overnight. Plan for cardiac cath in am - Exam Vitals: Temp Pulse Resp BP Pulse Ox 97.8 F 73 16 147/91 97 01/29/19 12:12 01/29/19 12:12 01/29/19 12:12 01/29/19 12:12 01/29/19 12:12 Exam: General appearance: Present: A&O X 3, no acute distress Head exam: Present: normocephalic Respiratory exam: Present: CTAB. Absent: accessory muscle use, rales, rhonchi, wheezes Cardiovascular exam: Present: RRR, +S1, +S2. Absent: diastolic murmur, gallop, rubs, systolic murmur GI/Abdominal exam: Soft, NT, ND, +BS Extremities exam: Absent: pedal edema Neurological exam: Present: alert, oriented X3, no focal deficits. Absent: altered - Assessment and Plan (1) NSTEMI (non-ST elevated myocardial infarction) Current Visit: Yes Status: Acute Assessment and Plan: Pt comes in with typical chest pain in seting of CABG/ CAD with [facility] in June Troponis elevated with new T wave inversions. Started on heparin drip Continue aspirin and plavix. Obtain 2D echo. Seen by interventional cardiology and plan for cath in am (2) Hypertension Current Visit: Yes Status: Chronic Assessment and Plan: Stable. Continue home meds (3) Ischemic cardiomyopathy Current Visit: Yes Status: Chronic Assessment and Plan: Last echo showed EF 30-35% No signs of volume overload (4) DVT prophylaxis Current Visit: Yes Status: Acute Assessment and Plan: Heparin drip - Time Spent with Patient Total time spent is greater than 50% in coordination of care (as documented) at patient's floor/unit and/or counseling patient: Internal Medicine: Result - Labs CBC & Chem 7: 01/28/19 18:11 01/29/19 00:10 Labs: Short CBC 01/28/19 01/28/19 Range/Units 16:03 18:11 WBC 5.8 7.0 (4.3-11.1) K/mcL Hgb 16.3 15.1 (12.9-16.9) g/dL Hct 46.3 43.6 (37.5-50.1) % Plt Count 182 193 (140-400) K/mcL Neutrophils # 3.3 3.8 (1.6-8.9) K/mcL BMP 01/28/19 01/29/19 16:03 00:10 Sodium 139 138 Potassium 4.0 3.9 Chloride 102 105 Carbon Dioxide 25 23 BUN 16 17 Creatinine 0.86 0.82 Glucose 199 H 149 H Calcium 9.5 9.0 Cardiac Enzymes 01/28/19 01/29/19 01/29/19 Range/Units 16:03 00:10 06:24 Troponin I 0.15 H* 0.17 H* 0.14 H* (< 0.04) ng/mL Liver Function 01/28/19 Range/Units 16:03 Total Bilirubin 1.1 H (0.3-1.0) mg/dL Direct Bilirubin 0.1 (0.0-0.2) mg/dL AST 21 (13-39) Units/L ALT 21 (7-52) Units/L Alkaline Phosphatase 48 (34-104) Units/L Albumin 4.7 (3.5-5.7) g/dL - ABG Interpretation ABG results: PT/INR, D-dimer PT 11.5 Seconds (9.4-12.1) 01/28/19 16:03 - Impressions Impressions Chest X-Ray 01/28/19 15:57 IMPRESSION: No acute process. D/ / 01/28/2019 16:37:54 [facility] Lee [facility] / [facility] Inter[facility] Provider: Gopi Lee MD Consult Discharge Plan - Plan Referrals: NONE,PCP [Primary Care Provider] - (2) Hypertension Qualifiers: Hypertension type: essential hypertension Qualified Code(s): I10 - Essential (primary) hypertension
[2019-01-29] MEDS: Heparin 25,000 UNIT/250 ML D5W 25,000 UNIT/250 ML IV.SOLN IVC SCH (13:45)
[2019-01-29] MEDS ORDERED: Perflutren Lipid Microsphere 1.3 ML in 0.9 % Sodium Chloride 8.7 ML IVP ONE (15:44)
[2019-01-29] MEDS: predniSONE 20 MG TABLET PO SCH (21:03)
[2019-01-30 03:45] LABS: Basophils % 0.6 %; Eosinophils % 0.6 %; Hematocrit 46.7 % (37.5-50.1); Immature Granulocytes % 0.7 % (0-4); Lymphocytes # 0.9 K/mcL (0.6-4.6); Mean Corpuscular HGB Conc 34.3 g/dL (31.6-35.5); Mean Corpuscular Hemoglobin 30.8 pg (28.0-33.3); Mean Platelet Volume 10.4 fL (9.4-12.4); Monocytes # 0.1 K/mcL (0.0-1.3); Monocytes % 1.8 %; Platelet Count 191 K/mcL (140-400); Red Blood Count 5.19 M/mcL (4.19-5.50); Red Cell Distribution Width 12.1 % (11.5-14.5); Segmented Neutrophils % 84.3 %; White Blood Count 7.1 K/mcL (4.3-11.1)
[2019-01-30 04:01] LABS: BUN/Creatinine Ratio 17 (6-26); Blood Urea Nitrogen 14 mg/dL (6-20); Calcium 9.5 mg/dL (8.6-10.3); Carbon Dioxide 20 mEq/L (23-29); Chloride 103 mEq/L (98-107); Glucose 231 mg/dL (70-105); Magnesium 1.9 mg/dL (1.6-2.6); Osmolality,Calculated 286 (280-300); Phosphorous 1.8 mg/dL (2.7-4.5); Potassium 4.7 mEq/L (3.5-5.1); Sodium 134 mEq/L (136-145); eGFR For African Americans > 60 (> 60); eGFR For Non-African Americans > 60 (> 60)
[2019-01-30] MEDS: Aspirin Enteric Coated 81 MG Tablet PO SCH (08:41)
[2019-01-30] MEDS: predniSONE 20 MG TABLET PO SCH (08:41)
[2019-01-30] MEDS: Heparin 25,000 UNIT/250 ML D5W 25,000 UNIT/250 ML IV.SOLN IVC SCH (08:41)
[2019-01-30] MEDS: Metoprolol XL (24 HR) Succ 25 MG TAB.ER.24H PO SCH (08:42)
--- NOTE | 2019-01-30 08:45 | Internal Med Progress Note ---
Hospitalist Progress Note - Encounter Date of Encounter: 01/30/19 Time of Encounter: 08:45 - Subjective Interval History: No acute events overnight - Exam Vitals: Temp Pulse Resp BP Pulse Ox 97.9 F 90 16 122/83 95 01/30/19 07:11 01/30/19 07:11 01/30/19 07:11 01/30/19 07:11 01/30/19 07:11 Exam: General appearance: Present: A&O X 3, no acute distress Head exam: Present: normocephalic Respiratory exam: Present: CTAB. Absent: accessory muscle use, rales, rhonchi, wheezes Cardiovascular exam: Present: RRR, +S1, +S2. Absent: diastolic murmur, gallop, rubs, systolic murmur GI/Abdominal exam: Soft, NT, ND, +BS Extremities exam: Absent: pedal edema Neurological exam: Present: alert, oriented X3, no focal deficits. Absent: altered - Assessment and Plan (1) NSTEMI (non-ST elevated myocardial infarction) Current Visit: Yes Status: Acute Assessment and Plan: Pt comes in with typical chest pain in seting of CABG/ CAD with [facility] in June Troponins elevated with new T wave inversions. Started on heparin drip Continue aspirin and plavix. Obtain 2D echo. Seen by interventional cardiology and plan for today (2) Hypertension Current Visit: Yes Status: Chronic Assessment and Plan: Stable. Continue home meds (3) Ischemic cardiomyopathy Current Visit: Yes Status: Chronic Assessment and Plan: Last echo showed EF 30-35% No signs of volume overload (4) DVT prophylaxis Current Visit: Yes Status: Acute Assessment and Plan: Heparin drip - Time Spent with Patient Total time spent is greater than 50% in coordination of care (as documented) at patient's floor/unit and/or counseling patient: Internal Medicine: Result - Labs CBC & Chem 7: 01/30/19 03:20 01/30/19 03:20 Labs: Short CBC 01/30/19 Range/Units 03:20 WBC 7.1 (4.3-11.1) K/mcL Hgb 16.0 (12.9-16.9) g/dL Hct 46.7 (37.5-50.1) % Plt Count 191 (140-400) K/mcL Neutrophils # 6.0 (1.6-8.9) K/mcL BMP 01/30/19 03:20 Sodium 134 L Potassium 4.7 Chloride 103 Carbon Dioxide 20 L BUN 14 Creatinine 0.83 Glucose 231 H Calcium 9.5 - ABG Interpretation ABG results: PT/INR, D-dimer PT 11.5 Seconds (9.4-12.1) 01/28/19 16:03 - Impressions Impressions Echocardiogram 01/29/19 18:09 Impressions: Despite the use of contrast, evaluation of LV function was difficult. Overall, LVEF appears 35%. Segmental left ventricular systolic dysfunction. Moderately dilated left ventricle. Atypical septal motion consistent with post-operative status. Right ventricle was not well visualized. Grossly, it is mildly dilated with normal function. Unable to estimate RVSP due to lack of TR jet. No obvious significant valvular dysfunction. Left Ventricular Wall Motion: Rest Echo Findings The apex, apical inferior, apical anterior, mid anterior, apical septal, apical lateral and mid anterior septal sierra were hypokinetic. All other wall segments showed normal motion. Findings: Study Quality * Technically sub-optimal due to poor echocardiographic windows. ECG Findings * Normal sinus rhythm. Left Ventricle * Despite the use of contrast, evaluation of LV function was difficult. Overall, LVEF appears 35%. * Segmental left ventricular systolic dysfunction. * Moderately dilated left ventricle. * Atypical septal motion consistent with post-operative status. Right Ventricle * Right ventricle was not well visualized. Grossly, it is mildy dilated with normal function. Left Atrium * Moderately dilated left atrium. Right Atrium * Normal right atrial size. Interatrial Septum * Interatrial septum not well evaluated. Aortic Valve * Aortic valve not well visualized. * No aortic stenosis. * No aortic regurgitation. Mitral Valve * Mild mitral annular calcification * No mitral regurgitation. * No mitral stenosis. Tricuspid Valve * Normal tricuspid valve structure and function. * No tricuspid regurgitation. * Unable to estimate RVSP due to lack of TR jet. Pulmonic Valve * Pulmonic valve not well visualized. Aorta * Normally sized aortic root. Pericardium * The pericardium appears normal. IVC * The IVC is not well evaluated. Pulmonary Artery * Pulmonary artery not well visualized. Consult Discharge Plan - Plan Referrals: NONE,PCP [Primary Care Provider] - (2) Hypertension Qualifiers: Hypertension type: essential hypertension Qualified Code(s): I10 - Essential (primary) hypertension
[2019-01-30] MEDS: *HR* Heparin 5,000 UNIT/ML VIAL IVP PRN (11:37)
[2019-01-30] MEDS ORDERED: Heparin 1,000 UNITS/500 mL 500 ML ONE (15:20)
[2019-01-30] MEDS ORDERED: *HR* Heparin 10,000 UNIT/10 ML VIAL ONE (15:20)
[2019-01-30] MEDS ORDERED: Iopamidol 125 ML INFUS..BTL ONE ×3 (15:20→16:53)
[2019-01-30] MEDS ORDERED: 0.9 % Sodium Chloride 1,000 ML ONE ×2 (15:20→20:38)
[2019-01-30] MEDS ORDERED: Nitroglycerin 1,000 MCG/10 ML VIAL IV ONE (15:20)
--- NOTE | 2019-01-30 15:32 | Pre-Sedation Evaluation ---
Pre-sedation evaluation - Pre-sedation checklist Date of procedure: 01/30/19 Procedure: [facility] Recent Vitals: Last Vital Signs Temp 97.6 F 01/30/19 11:13 Pulse 97 01/30/19 11:13 Resp 16 01/30/19 11:13 BP 122/76 01/30/19 11:13 Pulse Ox 94 01/30/19 11:13 H&P (including ROS) documented in medical record: Yes Previous reaction to sedatives/anesthetics: No Dietary Status: NPO after Midnight Airway Assessment: Patient can open mouth completely, TMJ function normal, Micrognathia (under-bite, receding chin) absent, Neck with adequate range of mot ion Dentition: No loose teeth or bridges Possible difficult airway: No ASA Classification *see protocol: CLASS II-Mild systemic disease Plan of Care: Pt appropriate candidate for procedure/moderate/conscious sedation, Risks/benefits of procedure/sedation discussed w/ patient/family Cardiac Registry (Cardio Only) - Functional Capacity Functional Capacity: < 4 METS - Clincal Frailty Scale Clinical Frailty Scale: Vulnerable
[2019-01-30] MEDS ORDERED: *HR* Midazolam HCl 2 MG/2 ML VIAL ONE (15:41)
[2019-01-30] MEDS ORDERED: *HR* FentaNYL (PF) 100 MCG/2 ML VIAL ONE (15:41)
[2019-01-30] MEDS ORDERED: methylPREDNISolone 125 MG/2 ML VIAL ONE (15:51)
[2019-01-30] MEDS ORDERED: Nitroglycerin Spray 4.9 GM BOTTLE ONE (16:07)
[2019-01-30] MEDS ORDERED: Nitroglycerin 25 MG/250 ML INFUS..BTL IVC ONE (16:07)
[2019-01-30] MEDS ORDERED: *HR* Bivalirudin 250 MG VIAL IVC ONE ×2 (16:33→16:34)
--- NOTE | 2019-01-30 18:14 | Invasive Diagnostic Lab Proc ---
Name: Hector Arnett Date of Study: 01/30/2019 Date: 1965 Ht: 68.0in Medical Record#: [id number] Age: 53 Wt: 264.55lb Gender: Male BSA: 2.3 Order #: [id number] BMI: 40.23 Physicians Procedure Physician: Day Painter MD, [facility] Referring MD: Referring MD: Staff Name Position Time In Edvin Sullivan RN Probate Paralegal 03:43 PM Jerry Farah RN Monitor 03:43 PM Anna Mejias RT (R) Scrub 03:44 PM Day Lloyd RT (R) Scrub 03:44 PM Indications Indication ACS > 24 hrs Procedures Performed Procedure L HRT ART/GRFT ANGIO PRQ CARD MATTHEW STENT W/ANGIO 1 VSL Pre-Procedure Checklist Informed consent is complete signed and on chart. H&P is on chart. ID band is on and ID verified with patient. Patient NPO for procedure The procedure was described for the patient and questions were answered. ECG is on chart. Plan of Care Patient will tolerate the procedure without complications. Adequate level of comfort will be maintained. Hemodynamics will remain stable Patient will recover from procedure without complications. Respiratory function will be maintained. Cardiac rhythm will remain stable. Patient temperature will be maintained. Patient and/or family have verbalized understanding of the procedure. Patient Education Chief Complaint/Reason for Test: Cardiac Cath Developmental Category: Adult (18-64 years) Developmentally Appropriate for Age: Yes Learning Barriers: None Education Needs: Procedure Education Method: Verbal Information Taught: Cardiac Cath Educational Evaluation: Able to repeat information Intravenous Access Time IV Size Location DC'd Fluid/Drip Rate Units RN 20g 1 1/4" Patent On Arrival Rt Arm 0.9NaCl 25 ml/hr Allergies quinapril IVP DYE IV DYE Vital Signs Time BP (mmHg) HR (bpm) O2 Sat. RR (bpm) LOC 122 / 83 90 95 % 16 5 = Fully awake and oriented or at pre-proc level 03:50 PM / % 5 = Fully awake and oriented or at pre-proc level 03:50 PM / % 4 = Oriented but drowsy 04:05 PM / % 4 = Oriented but drowsy 04:20 PM / % 5 = Fully awake and oriented or at pre-proc level 05:16 PM 135 / 93 107 97 % 19 03:52 PM 134 / 104 126 99 % 20 03:57 PM 165 / 119 125 100 % 15 04:01 PM 171 / 124 132 100 % 20 04:06 PM 169 / 125 130 100 % 17 04:12 PM 161 / 109 123 100 % 22 04:16 PM 90 / 58 101 97 % 18 04:19 PM 95 / 58 109 94 % 25 04:21 PM 89 / 60 103 94 % 20 04:26 PM 97 / 62 107 93 % 31 04:31 PM 112 / 72 104 96 % 27 04:36 PM 120 / 80 108 95 % 30 04:41 PM 132 / 89 110 96 % 31 04:46 PM 129 / 82 111 94 % 30 04:51 PM 119 / 62 106 94 % 33 04:56 PM 128 / 86 106 95 % 29 05:01 PM 126 / 84 110 94 % 25 05:30 PM 142 / 99 106 96 % 20 5 = Fully awake and oriented or at pre-proc level Procedural Medications Time Medication Dose Units Method Given By 03:51 PM Oxygen 2 L/min nasal cannula Edvin Sullivan RN 03:54 PM Versed 1 mg Intravenous Edvin Sullivan RN 03:54 PM Fentanyl 25 mcg Intravenous Edvin Sullivan RN 03:54 PM Benadryl 25 mg Intravenous Edvin Sullivan RN 03:55 PM Solu-medrol 125 mg Intravenous Edvin Sullivan RN 04:02 PM Versed 1 mg Intravenous Edvin Sullivan RN 04:02 PM Fentanyl 25 mcg Intravenous Edvin Sullivan RN 04:07 PM Nitroglycerin 1 spray Sublingual Edvin Sullivan RN 04:09 PM Nitroglycerin 10 ml/hr Intravenous Edvin Sullivan RN 04:11 PM Fentanyl 25 mcg Intravenous Edvin Sullivan RN 04:14 PM Lidocaine 2% 20 ml Subcutaneous Day Painter MD, FACC 04:31 PM Angiomax 0.75mg/kg bolus: 18 ml Intravenous Edvin Sullivan RN 04:31 PM Angiomax 1.75mg/kg/hr: 42 ml Intravenous Edvin Sullivan RN 04:45 PM Nitroglycerin 200 mcg Intracoronary Day Painter MD, FACC 04:59 PM Plavix 300 mg Orally Edvin Sullivan RN ASA Classification: CLASS II- Mild systemic disease (i.e. well-controlled diabetes, hypertension, asthma, cigarette smoking) Kena Score Preprocedure Postprocedure Activity 2- Moves 4 extremities sustained head lift Activity 2- Moves 4 extremities sustained head lift Circulation 2- SBP +/= 20 points of pre-anesthetic level Circulation 2- SBP +/= 20 points of pre-anesthetic level Consciousness 2- Awake and alert oriented x 3 Consciousness 2- Awake and alert oriented x 3 O2 Saturation 2- Able to maintain O2 satruation of 92% on room air O2 Saturation 2- Able to maintain O2 satruation of 92% on room air Respiratory 2- Able to deep breathe and cough well Respiratory 2- Able to deep breathe and cough well Total Score 10 Total Score 10 Contrast Agent: Isovue Diagnostic Contrast: 257 ml Total Contrast: 257 ml Fluoro Dose: 144 mGy Procedure Log Time Note Enter By 03:40 PM Pt arrived to greens laborer 2 at 15:40 oparker 03:43 PM Edvin Sullivan RN Position: Probate Paralegal Time in: 15:43 oparker 03:43 PM Jerry Farah RN Position: Monitor Time in: 15:43 oparker 03:44 PM Anna Mejias RT (R) Position: Scrub Time in: 15:44 oparker 03:44 PM Day Lloyd RT (R) Position: Scrub Time in: 15:44 oparker 03:44 PM Patient charges- Angio tray pack, Navilyst 3mm J, Pulse Oximetry and ACIST tubing and transducer oparker 03:47 PM Recorded ECG: NM=663 Condition=Condition 1 03:49 PM Physician arrived 15:49 oparker 03:49 PM Meet and greet completed oparker 03:49 PM Sign in performed according to hospital policy. Informed consent was obtained. oparker 03:50 PM CathStat 03:50 PM Time: 15:50 Patient comfortable and pain free: Yes oparker 03:50 PM Time: 15:50LOC: 5 = Fully awake and oriented or at pre-proc level oparker 03:50 PM Vitals capture started with the following parameters, Patient=Adult, Interval=5 min, Initial Nspjmvlm=824 mmHg, Deflation Rate=3 mmHg, Cuff placed on Right Arm 03:51 PM Procedure start 15:51 oparker 03:51 PM Time: 15:51 Oxygen on at 2 L/min per nasal cannula by Edvin Sullivan RN oparker 03:52 PM PK=029 bpm, BBSJ=497/104 mmhg, SpO2=99.0 %, Resp=20 B/min 03:52 PM Hair removed from procedure site in procedure lab using clippers. Bilateral groin prepped with Chloraprep by Day Lloyd (R), then patient was draped. Skin intact. oparker 03:54 PM Time: 15:54 Versed 1 mg Intravenous Given by Edvin Sullivan RN [email or web address] 03:54 PM Time: 15:54 Fentanyl 25 mcg Intravenous Given by Edvin Sullivan RN [email or web address] 03:55 PM Time: 15:54 Benadryl 25 mg Intravenous Given by Edvin Sullivan RN [email or web address] 03:55 PM Time: 15:55 Solu-medrol 125 mg Intravenous Given by Edvin Sullivan RN [email or web address] 03:57 PM IL=758 bpm, OOJI=155/119 mmhg, ToN6=865.0 %, Resp=15 B/min 03:58 PM patient's chest pain is at a 5 out of 10 oparker 03:58 PM ASA Class CLASS II- Mild systemic disease (i.e. well-controlled diabetes, hypertension, asthma, cigarette smoking) oparker 04:01 PM FI=043 bpm, BNHF=671/124 mmhg, CvO4=867.0 %, Resp=20 B/min 04:02 PM Time: 16:02 Versed 1 mg Intravenous Given by Edvin Sullivan RN opaleatha 04:03 PM Time: 16:02 Fentanyl 25 mcg Intravenous Given by Edvin Sullivan RN [email or web address] 04:05 PM NIBP STAT measurement started. 04:05 PM Time: 15:50LOC: 4 = Oriented but drowsy oparker 04:05 PM Time: 15:50 Patient comfortable and pain free: Yes oparker 04:06 PM OT=438 bpm, GOGE=398/125 mmhg, PmX3=981.0 %, Resp=17 B/min 04:08 PM Time: 16:07 Nitroglycerin 1 spray Sublingual Given by Edvin Sullivan RN 04:09 PM Time: 16:09 Nitroglycerin 10 ml/hr Intravenous Given by Edvin Sullivan RN 04:10 PM NIBP STAT measurement started. 04:10 PM Time out was performed according to hospital policy. Conscious sedation and anesthesia was achieved (see medication log with in this report above) oparker 04:11 PM Time: 16:11 Fentanyl 25 mcg Intravenous Given by Edvin Sullivan RN oparker 04:12 PM JQ=559 bpm, UMIG=420/109 mmhg, BlC9=816.0 %, Resp=22 B/min 04:13 PM patient rates chest pain 3 out of 10 oparker 04:14 PM Time: 16:14 20 ml Lidocaine 2% to left groin Subcutaneous Given by Day Painter MD, [facility] oparker 04:15 PM Access obtained by percutaneous puncture. 5Fr 10cm Terumo [place] sheath placed in left Femoral artery. [id number] oparker 04:16 PM 0.035 150cm Navilyst 3mmJ wire [id number] oparker 04:16 PM 5Fr FL 4 catheter inserted over the wire DN oparker 04:16 PM RG=911 bpm, NIBP=90/58 mmhg, SpO2=97.0 %, Resp=18 B/min 04:17 PM Pressure channel 1 zeroed. 04:17 PM Recorded Pressure: Ao, HR=85, Condition=Condition 1 (Aorta) Ao 62/48/54 04:18 PM Nitro shut off oparker 04:18 PM LCA angiography performed in multiple views. oparker 04:19 PM Catheter removed oparker 04:19 PM NIBP STAT measurement started. 04:19 PM 5Fr FR 4 catheter inserted over the wire DN oparker 04:19 PM MW=198 bpm, NIBP=95/58 mmhg, SpO2=94.0 %, Resp=25 B/min 04:20 PM Recorded Pressure: Ao, FH=305, Condition=Condition 1 (Aorta) Ao 73/61/66 04:20 PM Time: 16:05 Patient comfortable and pain free: Yes oparker 04:20 PM Time: 16:05LOC: 4 = Oriented but drowsy oparker 04:21 PM RCA angiography performed in multiple views. oparker 04:21 PM Catheter removed oparker 04:21 PM FW=921 bpm, NIBP=89/60 mmhg, SpO2=94.0 %, Resp=20 B/min 04:22 PM 5Fr IM catheter inserted over the wire [id number] oparker 04:23 PM Left NICOLLE to the LAD angio performed in multiple views. oparker 04:23 PM Recorded Pressure: Ao, VC=041, Condition=Condition 1 (Aorta) Ao 80/68/74 04:25 PM Catheter removed oparker 04:25 PM 5Fr Pigtail catheter inserted over the wire [facility] oparker 04:25 PM Catheter crossed the aortic valve and was selectively placed in the left ventricle. Pressures recorded on pullback for left heart catheterization. oparker 04:25 PM Recorded Pressure: LV, RB=541, Condition=Condition 1 (Left Ventricle) LV 96/-2/7 04:25 PM Bolus angiogram of left Ventricle complete: 8 ml/sec for a total of 24 mls oparker 04:25 PM Recorded Pressure: LV, Ao, GA=352, Condition=Condition 1 (Left Ventricle) LV 86/42/61, (Aorta) Ao 69/58/64 04:26 PM JX=391 bpm, NIBP=97/62 mmhg, SpO2=93.0 %, Resp=31 B/min 04:27 PM Catheter removed oparker 04:27 PM Inflation device was opened. oparker 04:31 PM Sheath exchanged for a 6 Fr 10 cm Clowdy Destination sheath [id number] oparker 04:31 PM LZ=800 bpm, OMKG=207/72 mmhg, SpO2=96.0 %, Resp=27 B/min 04:31 PM Time: 16:31 Angiomax 0.75mg/kg bolus: 18 ml Intravenous Given by Edvin Sullivan RN Dela Cruz pump oparker 04:32 PM Time: 16:31 Angiomax 1.75mg/kg/hr: 42 ml Intravenous Given by Edvin Sullivan RN Dela Cruz pump oparker 04:33 PM .014 Prowater 180cm guide wire across target lesion- successful. reused? No oparker 04:33 PM 6Fr JR 4 Kincaid Bright-Tip guide catheter was used to cannulate the PCI vessel successfully. reused? No oparker 04:34 PM Lesion found in Mid RCA. Pre Stenosis: 99 Pre SERGEI Flow: 3: Complete and Brisk Flow/Perfusion oparker 04:34 PM Right Coronary, Right Posterior Descending Arteries with Right Posterolateral and Acute Marginal branches with 99 % stenosis. If graft is supplying this area, 0 % stenosis oparker 04:34 PM Recorded Pressure: Ao, OR=242, Condition=Condition 1 (Aorta) Ao 95/68/81 04:35 PM 2.5 mm x 20 mm Emerge Monorail balloon across target lesion- successful. reused? No oparker 04:35 PM Time: 16:20 Patient comfortable and pain free: Yes oparker 04:35 PM Time: 16:20LOC: 5 = Fully awake and oriented or at pre-proc level oparker 04:36 PM CP=679 bpm, AKQM=908/80 mmhg, SpO2=95.0 %, Resp=30 B/min 04:38 PM Balloon inflated @ 14 radha for 30 seconds oparker 04:38 PM Recorded Pressure: Ao, KF=375, Condition=Condition 1 (Aorta) Ao 91/77/85 04:39 PM Balloon catheter removed intact. oparker 04:40 PM 3.5mm x 28mm Synergy drug-eluting stent across target lesion- successful Lot #[id number] oparker 04:41 PM Recorded Pressure: Ao, IH=452, Condition=Condition 1 (Aorta) Ao 109/74/90 04:41 PM TP=361 bpm, DZFS=878/89 mmhg, SpO2=96.0 %, Resp=31 B/min 04:43 PM Stent deployed @ 12 radha for 30 seconds oparker 04:43 PM Stent balloon reinflated @ 16 radha for 15 seconds oparker 04:44 PM Stent delivery system removed intact. oparker 04:44 PM Recorded Pressure: Ao, KV=488, Condition=Condition 1 (Aorta) Ao 115/75/91 04:45 PM Time: 16:45 Nitroglycerin 200 mcg Intracoronary Given by Day Painter MD, [facility] oparker 04:46 PM UY=779 bpm, NCNJ=222/82 mmhg, SpO2=94.0 %, Resp=30 B/min 04:48 PM 2.25mm x 12mm Synergy drug-eluting stent across target lesion- successful Lot #[id number] oparker 04:51 PM EF=060 bpm, HWFI=827/62 mmhg, SpO2=94.0 %, Resp=33 B/min 04:52 PM Recorded Pressure: Ao, IA=520, Condition=Condition 1 (Aorta) Ao 95/75/84 04:55 PM Stent deployed @ 11 radha for 30 seconds oparker 04:55 PM Stent balloon reinflated @ 12 radha for 10 seconds oparker 04:56 PM Stent delivery system removed intact. oparker 04:56 PM TF=980 bpm, MJAG=135/86 mmhg, SpO2=95.0 %, Resp=29 B/min 04:56 PM Recorded Pressure: Ao, GL=668, Condition=Condition 1 (Aorta) Ao 105/69/84 04:58 PM Guide wire removed intact. oparker 04:58 PM Guide catheter removed intact. oparker 04:59 PM Bolus angiogram of right Femoral complete: 4 ml/sec for a total of 7 mls oparker 04:59 PM Time: 16:59 Plavix 300 mg Orally Given by Edvin Sullivan RN oparker 05:01 PM Procedure completed at 17:01 01/30/2019 oparker 05:01 PM OD=613 bpm, FAPR=913/84 mmhg, SpO2=94.0 %, Resp=25 B/min 05:01 PM Isovue 370 - 200ml,3 Bottle(s) used. oparker 05:03 PM Did you address SERGEI flow and Dominance? YesCoronary Dominance: right oparker 05:03 PM Sign out completed: Radiation Dose 1159.03 mGy, 144 Gy/cm2 Fluoro Time: 9.6 Isovue 370 - 200ml contrast 257 ml given by Day Painter MD, [facility]. Complications: None. The patient was discharged out of the manager lab in stable condition. Sedation minutes 67. Cardiac Rehab Consult needed: Yes. Confirmed administered medications: Yes oparker 05:04 PM Sheath left in place to be pulled on floor/holding areaV+Pad oparker 05:04 PM Estimated Blood Loss: less than 20cc oparker 05:04 PM Post ECG Sinus Tachycardia oparker 05:04 PM Post Blood Pressure 126/84 oparker 05:04 PM 17:04 Post Pulses Bilateral DP 1+ oparker 05:05 PM Information taught Cardiac Cath, V+ Pad, and CONVEX GRINDER/Stent oparker 05:05 PM Education needs Procedure, Plan of Care, and Disease Process oparker 05:05 PM Learning barriers :None oparker 05:05 PM Education Methods Verbal oparker 05:05 PM Education evaluation Able to repeat information oparker 05:05 PM Site status No bleeding/ No Hematoma - Lt Groin as reported by Magalie, Anna G. RT (R) at 17:05 oparker 05:05 PM Opsite applied oparker 05:05 PM Family placed in consult room. oparker 05:08 PM Report given to Sydney AGUILAR Pt taken to Holding room Room #3. 17:08 oparker 05:08 PM Patient out of room: 17:08 oparker 05:10 PM Lesion found in Distal LMCA. Pre Stenosis: 40 Pre SERGEI Flow: oparker 05:10 PM Lesion found in Proximal LAD. Pre Stenosis: 100 Pre SERGEI Flow: oparker 05:10 PM Lesion found in Mid LAD. Pre Stenosis: 99 Pre SERGEI Flow: oparker 05:11 PM Lesion found in 1st Marginal. Pre Stenosis: 40 Pre SERGEI Flow: oparker 05:11 PM Lesion found in Proximal RCA. Pre Stenosis: 40 Pre SERGEI Flow: oparker 05:11 PM Lesion found in Mid RCA. Pre Stenosis: 99 Pre SERGEI Flow: oparker 05:11 PM Lesion found in Right PDA. Pre Stenosis: 99 Pre SERGEI Flow: 2: Partial Flow/Perfusion (> 1 but < 3) oparker 05:12 PM Left Main Coronary Artery with 40% stenosis oparker 05:12 PM Proximal Left Anterior Descending Coronary Artery with 100% stenosis. If graft is supplying this territory, 0 % stenosis. oparker 05:12 PM Mid/Distal Left Anterior Descending Coronary Artery and diagonal branches with 99% stenosis. If graft is supplying this area, 0 % stenosis oparker 05:12 PM Circumflex, Obtuse Marginal, Left Posterior Descending, and Left Posterolateral Coronary Arteries with 40 % stenosis. If graft is supplying this area, 100 % stenosis oparker 05:12 PM Right Coronary, Right Posterior Descending Arteries with Right Posterolateral and Acute Marginal branches with 99 % stenosis. If graft is supplying this area, 0 % stenosis oparker 05:48 PM Report given to Jamia VAZQUEZ Pt taken to ICU Room #3. 17:48 kmavis Complications Complication None Hemodynamics Pressures Site Systolic/A Wave Diastolic/V Wave Mean AO 62 48 54 AO 73 61 66 AO 80 68 74 LV 96 -2 7 LV 86 42 61 AO 69 58 64 AO 95 68 81 AO 91 77 85 AO 109 74 90 AO 115 75 91 AO 95 75 84 AO 105 69 84 Post Procedure Information Blood Pressure: 126/84 mmHg Rhythm: Sinus Tachycardia Post procedural instructions were given Site Checks Time Location Status Staff Sheath In? Note 05:05 PM Lt Groin No bleeding/ No Hematoma Anna Mejias RT (R) Yes 05:16 PM Lt Groin No bleeding/ No Hematoma Sydney Simmons RT (R) Yes 05:30 PM Lt Groin No bleeding/ No Hematoma Jes Waterman RN Yes Pulses Time Site Pre-Procedure Post-Procedure Note Bilateral DP & PT 2+ Bilateral radial 2+ 5:04:00 PM Bilateral DP 1+ 01/30/2019 5:16:00 PM Bilateral DP & PT 1+ Updated by Jes Waterman RN on 01/30/2019 6:05:53 PM electronically signed on 01/30/2019 6:06:38 PM with status of Final
[2019-01-30] MEDS ORDERED: *HR* Atropine Sulfate 1 MG/10 ML SYRINGE ONE (20:07)
[2019-01-31 05:28] LABS: Basophils % 0.1 %; Hematocrit 45.9 % (37.5-50.1); Hemoglobin 15.6 g/dL (12.9-16.9); Immature Granulocytes % 0.6 % (0-4); Lymphocytes # 1.1 K/mcL (0.6-4.6); Lymphocytes % 6.2 %; Mean Corpuscular Hemoglobin 30.2 pg (28.0-33.3); Mean Platelet Volume 10.4 fL (9.4-12.4); Monocytes # 0.6 K/mcL (0.0-1.3); Monocytes % 3.6 %; Neutrophils # 15.3 K/mcL (1.6-8.9); Platelet Count 223 K/mcL (140-400); Red Blood Count 5.16 M/mcL (4.19-5.50); Red Cell Distribution Width 12.3 % (11.5-14.5); Segmented Neutrophils % 89.5 %
[2019-01-31 05:29] LABS: White Blood Count 17.1 K/mcL (4.3-11.1)
[2019-01-31 05:49] LABS: BUN/Creatinine Ratio 18 (6-26); Blood Urea Nitrogen 16 mg/dL (6-20); Calcium 9.3 mg/dL (8.6-10.3); Carbon Dioxide 19 mEq/L (23-29); Chloride 101 mEq/L (98-107); Glucose 263 mg/dL (70-105); Magnesium 1.9 mg/dL (1.6-2.6); Osmolality,Calculated 290 (280-300); Phosphorous 3.2 mg/dL (2.7-4.5); Potassium 4.1 mEq/L (3.5-5.1); Sodium 135 mEq/L (136-145); eGFR For African Americans > 60 (> 60); eGFR For Non-African Americans > 60 (> 60)
[2019-01-31] MEDS ORDERED: *HR* Dextrose 50 % in Water (Syg) 50 ML SYRINGE IVP PRN (08:54)
[2019-01-31] MEDS ORDERED: D5% in Water 1,000 ML IVC PRN (08:54)
[2019-01-31] MEDS ORDERED: Dextrose Gel 15 GM/37.5 ML TUBE PO PRN ×2 (08:54)
[2019-01-31] MEDS: Aspirin Enteric Coated 81 MG Tablet PO SCH (09:18)
[2019-01-31] MEDS: Metoprolol XL (24 HR) Succ 25 MG TAB.ER.24H PO SCH (09:18)
--- NOTE | 2019-01-31 09:49 | Internal Med Progress Note ---
Hospitalist Progress Note - Encounter Date of Encounter: 01/31/19 Time of Encounter: 11:45 - Subjective Interval History: The patient is a 53-year-old male who presented to [facility] ED on week of gradually progressive and worsening chest pain. 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 The patient states that with the pain that he has been having nitroglycerin has helped to relieve his pain, however he notes that it has been randomly occurring but appears to be worsening with exertion. Patient states he called his hide worker for further recommendations who stated that he should come to the ER at this time. Patient states that this pain does feel identical to his previous heart attacks. Patient currently is on aspirin and Plavix for anticoagulation - Exam Vitals: Temp Pulse Resp BP Pulse Ox 97.6 F 93 20 148/92 95 01/31/19 09:04 01/31/19 06:00 01/31/19 06:00 01/31/19 06:00 01/31/19 06:00 - Time Spent with Patient Total time spent is greater than 50% in coordination of care (as documented) at patient's floor/unit and/or counseling patient: Internal Medicine: Result - Labs CBC & Chem 7: 01/31/19 03:19 01/31/19 03:19 Labs: Short CBC 01/31/19 Range/Units 03:19 WBC 17.1 H D (4.3-11.1) K/mcL Hgb 15.6 (12.9-16.9) g/dL Hct 45.9 (37.5-50.1) % Plt Count 223 (140-400) K/mcL Neutrophils # 15.3 H (1.6-8.9) K/mcL BMP 01/31/19 03:19 Sodium 135 L Potassium 4.1 Chloride 101 Carbon Dioxide 19 L BUN 16 Creatinine 0.90 Glucose 263 H Calcium 9.3 - ABG Interpretation ABG results: PT/INR, D-dimer PT 11.5 Seconds (9.4-12.1) 01/28/19 16:03 Consult Discharge Plan - Plan Referrals: NONE,PCP [Primary Care Provider] -
--- NOTE | 2019-01-31 11:14 | Electrocardiograph Report ---
[address] [place], [place] [address] Test Date: 2019-01-30 Pat Name: Hector Arnett Department: 109 Room: 03 Gender: M Meter Setter: : 1965 Requested By: Day Painter Order Number: [id number] Reading MD: Faisal Brock Measurements Intervals [place] Rate: 113 P: 56 MA: 190 QRS: 95 QRSD: 104 T: 243 QT: 330 QTc: 397 Interpretive Statements Sinus tachycardia Probable lateral infarct, age indeterminate Probable anteroseptal infarct, recent Electronically Signed On 01-31-2019 11:13:17 EDT by Faisal Brock
--- NOTE | 2019-01-31 11:54 | Cardiology Progress Note ---
Date of Encounter: 01/31/19 Time of Encounter: 09:00 Assessment and Plan (1) NSTEMI (non-ST elevated myocardial infarction) Current Visit: Yes Status: Acute Per cardiology: -NSTEMI s/p [facility] yesterday with PCI to RCA with MATTHEW, 1/3 patent bypass grafts. -Denies chest pain. -On asa, plavix, statin, BB. Educated on dual anti-platelet therapy uninterrupted for at least one year, states understanding. -Left groin access site with mild ecchymosis, no hematoma. Access site management education reviewed with patient, states understanding. -Cardiology will sign off, will arrange outpatient follow up. -Risk factor modification stressed with patient. (2) Ischemic cardiomyopathy Current Visit: Yes Status: Chronic Per cardiology: -LVEF 35%, similar to previous, has AICD. -ON bb. Allergy to juan inhibitor. Not on ARB due to patient's refusal, states hypotension at home. Educated on recs for ARB, states understanding. -Euvolemic on exam. -Continue BB. (3) Hyperlipidemia Current Visit: Yes Status: Acute Per cardiology: -Cholesterol significantly elevated. -Had been on crestor 5 weekly. -Patient has been started on daily crestor, and agreeable to take. Qualifiers: Hyperlipidemia type: mixed hyperlipidemia Qualified Code(s): E78.2 - Mixed hyperlipidemia Discussion w patient/family: The assessment and plan as outlined above was discussed with the patient who expressed understanding and agreement. All questions were answered. Thank you for involving us in the care of your patient. Please call with any questions. Discussed and reviewed with . Subjective Principal diagnosis: NSTEMI Interval history: Patient is s/p [facility] yesterday with PCI. Denies chest pain. Objective Vital Signs, Last 4 Hours Temp 01/31/19 09:04 97.6 F Vital Signs Temperature 98.6 F 01/28/19 15:57 Pulse Rate 92 01/28/19 15:57 Respiratory Rate 01/28/19 15:57 Blood Pressure 148/93 01/28/19 15:57 O2 Sat by Pulse Oximetry 99 01/28/19 15:57 Temperature 97.6 F 01/31/19 09:04 Pulse Rate 91 01/31/19 07:15 Respiratory Rate 01/31/19 07:15 Blood Pressure 117/64 01/31/19 07:15 O2 Sat by Pulse Oximetry 96 01/31/19 07:15 Oxygen Delivery Oxygen Delivery Room Air General: Conversant, No Apparent Distress HEENT: Atraumatic, Normocephaly, Mucus Membranes Moist Neck: No JVD, Normal carotid pulses Cardiac: Reg Rate and Rhythm, Normal S1 and S2, No Murmur Lungs: Normal Breath Sounds, No Wheeze, Rales, Rhonchi Neuro: Alert and responsive, No focal deficits noted Abdomen: Soft, Non-Tender Skin: No rashes noted on visualized skin, Other (Left groin access site with mild ecchymosis, no hematoma. ) Musculoskeletal: No Chest Wall Tenderness Extremities: No Clubbing, No Cyanosis, No Edema, Normal Pulses Results 01/31/19 03:19 01/31/19 03:19 Lab Results ITS Impressions Chest X-Ray 01/28/19 15:57 IMPRESSION: No acute process. D/ / 01/28/2019 16:37:54 Gopi Lee MD / [facility] Interpreting Provider: Gopi Lee MD Echocardiogram 01/29/19 18:09 Impressions: Despite the use of contrast, evaluation of LV function was difficult. Overall, LVEF appears 35%. Segmental left ventricular systolic dysfunction. Moderately dilated left ventricle. Atypical septal motion consistent with post-operative status. Right ventricle was not well visualized. Grossly, it is mildly dilated with normal function. Unable to estimate RVSP due to lack of TR jet. No obvious significant valvular dysfunction. Left Ventricular Wall Motion: Rest Echo Findings The apex, apical inferior, apical anterior, mid anterior, apical septal, apical lateral and mid anterior septal sierra were hypokinetic. All other wall segments showed normal motion. Findings: Study Quality * Technically sub-optimal due to poor echocardiographic windows. ECG Findings * Normal sinus rhythm. Left Ventricle * Despite the use of contrast, evaluation of LV function was difficult. Overall, LVEF appears 35%. * Segmental left ventricular systolic dysfunction. * Moderately dilated left ventricle. * Atypical septal motion consistent with post-operative status. Right Ventricle * Right ventricle was not well visualized. Grossly, it is mildy dilated with normal function. Left Atrium * Moderately dilated left atrium. Right Atrium * Normal right atrial size. Interatrial Septum * Interatrial septum not well evaluated. Aortic Valve * Aortic valve not well visualized. * No aortic stenosis. * No aortic regurgitation. Mitral Valve * Mild mitral annular calcification * No mitral regurgitation. * No mitral stenosis. Tricuspid Valve * Normal tricuspid valve structure and function. * No tricuspid regurgitation. * Unable to estimate RVSP due to lack of TR jet. Pulmonic Valve * Pulmonic valve not well visualized. Aorta * Normally sized aortic root. Pericardium * The pericardium appears normal. IVC * The IVC is not well evaluated. Pulmonary Artery * Pulmonary artery not well visualized. Active Medications Aspirin (Aspirin Ec) 81 mg PO DAILY [facility] Stop: 07/31/19 09:01 Last Admin: 01/31/19 09:18 Dose: 81 mg Documented by: Clopidogrel Bisulfate (Plavix) 75 mg PO DAILY [facility] Stop: 07/31/19 09:01 Last Admin: 01/31/19 09:18 Dose: 75 mg Documented by: Dextrose/Water (Dextrose 50% (Syg)) 25 ml IVP AD PRN PRN Reason: Hypoglycemia Stop: 08/02/19 08:55 Glucagon (Glucagen) 1 mg IM ONCE PRN PRN Reason: Hypoglycemia Stop: 08/02/19 08:55 Glucose (Gluctose) 15 gm PO ONCE PRN PRN Reason: Hypoglycemia Stop: 08/02/19 08:55 Glucose (Gluctose) 30 gm PO ONCE PRN PRN Reason: Hypoglycemia Stop: 08/02/19 08:55 Dextrose (Dextrose 5%) 1,000 mls @ 100 mls/hr IVC .Q10H PRN PRN Reason: HYPOGLYCEMIA Stop: 08/02/19 08:55 Insulin Human Lispro (Humalog) 0 units SQ Q6HR [facility]; Protocol Stop: 08/02/19 12:01 Metoprolol Succinate (Toprol Xl) 25 mg PO DAILY [facility] Stop: 07/31/19 09:01 Last Admin: 01/31/19 09:18 Dose: Not Given Documented by: Naloxone HCl (Narcan) 0.4 mg IVP Q2MPRN PRN PRN Reason: SEE COMMENTS Stop: 07/30/19 17:50 Nitroglycerin (Nitroglycerin) 0.4 mg SL Q5MIN PRN PRN Reason: Chest Pain Stop: 07/30/19 16:15 Rosuvastatin Calcium (Crestor) 40 mg PO HS [place] Stop: 08/01/19 21:01 Last Admin: 01/30/19 20:58 Dose: Not Given Documented by: Laboratory Tests 01/31/19 01/31/19 03:19 03:19 Hgb 15.6 Creatinine 0.90 - Imaging and Cardiology Chest Xray: report reviewed Echo: report reviewed Cardiac cath: report reviewed Consult Discharge Plan - Plan Referrals: NONE,PCP [Primary Care Provider] -
[2019-01-31] MEDS ORDERED: Insulin LISPRO 300 UNITS/3 ML VIAL SQ SCH (12:00)
--- NOTE | 2019-01-31 12:00 | Discharge Summary ---
<Lauri Gonzalez - Last Filed: 01/31/19 11:53> - NOTES TO OUTPATIENT PROVIDER Notes to Outpatient Provider: Patient is status post left heart catheter with severe stenosis of previously placed stent repaired Date of Encounter: 01/31/19 Time of Encounter: 11:53 Hospital course: Mr. Arnett is a 53 year old male with past medical history of CAD who underwent a quadruple bypass CABG in June of this year. He presented to [facility] ED on 01/28/2019 for one week history of chest pains worsened with exertion relieved with nitroglycerin. The patient states this felt like his prior heart attacks and called cardiology who told him to present to the emergency department. Patient had no acute ischemic change noted but was taken to [facility] by Dr. Day Painter where he was found to have severe stenosis of prior stent. The stenosis was repaired in the [facility] the patient was sent to ICU for further evaluation and management. Upon my initial evaluation this morning patient is awake alert oriented he is in no acute distress or no lateralizing signs physical exam is unremarkable he has no concerns or complaints and states he wants to go home. Spoke with cardiology who states they will sign off and are agreeable to patient's discharge with follow-up within 1 week. Discharge discussed with: patient Time spent discussing smoking cessation with patient: 3 to 10 minutes - Time Spent with Patient Total time spent providing and/or coordinating discharge services: Time spent: Less than 30 minutes Specific discharge activities: Follow-up with your primary care physician and cardiology within one week. Continue all prescribed home medications. - Discharge Medications Prescriptions: No Action Aspirin Enteric Coated [Aspirin EC] 81 mg PO DAILY #30 tablet. Nitroglycerin [Nitrostat] 0.4 mg SL PRN PRN #30 tab.subl PRN Reason: Chest Pain Cyclobenzaprine [Flexeril] 10 mg PO TID PRN PRN Reason: Muscle Spasm hydrOXYzine HCl [Hydroxyzine HCl] 25 mg PO Q8H PRN PRN Reason: Itching Rosuvastatin Calcium [Crestor] 5 mg PO FR Clopidogrel [Plavix] 75 mg PO DAILY Home Medications: Aspirin Enteric Coated [Aspirin EC] 81 mg PO DAILY #30 tablet. 02/28/16 [Rx] Nitroglycerin [Nitrostat] 0.4 mg SL PRN PRN #30 tab.subl 02/28/16 [Rx] Cyclobenzaprine [Flexeril] 10 mg PO TID PRN 07/05/18 [History] hydrOXYzine HCl [Hydroxyzine HCl] 25 mg PO Q8H PRN 07/05/18 [History] Clopidogrel [Plavix] 75 mg PO DAILY 01/29/19 [History] Rosuvastatin Calcium [Crestor] 5 mg PO FR 01/29/19 [History] Allergies/Adverse Reactions: Allergy/AdvReac Type Severity Reaction Status Date / Time quinapril AdvReac Hypotension Verified 01/28/19 16:03 IVP DYE Allergy Hives Uncoded 01/28/19 16:03 Date of admission: 01/29/19 16:23 Primary care physician: PCP NONE Consults: 01/29/19 08:24 Consult to Cardiology [CONS] Routine Comment: Consulting Provider: Cardiology Jayna Reason for Consult: chest pain on heparin drip Call Completed: Yes 01/30/19 08:32 Consult to Cardiac Rehabilitation-Phase1 [CONS] Routine Comment: Reason for Consult: NSTEMI Call Completed: No Discharging clinician: Lauri Gonzalez Anticipated date of discharge: 01/31/19 - Constitutional Vitals: Temp Pulse Resp BP Pulse Ox 97.6 F 91 20 117/64 96 01/31/19 09:04 01/31/19 07:15 01/31/19 07:15 01/31/19 07:15 01/31/19 07:15 General appearance: Present: A&O X 3, no acute distress, answers questions appropriately Exam: Upon my initial evaluation the patient is awake, alert, engaged conversation answering questions appropriately. There are no overt lateralizing signs. The patient is sitting up in chair next to hospital bed watching television. Pupils are equal round reactive to light and accommodation, the patient tracks well with EOMI intact, trachea is midline and supple, patient's skin appears pink, warm, dry, cardiopulmonary auscultation is unremarkable, peripheral pulses are strong, there is no evidence of peripheral edema. Patient states she has no concerns or complaints at this time would like to go home. - Head Head exam: Present: atraumatic - Patient Status Disposition: Home, Self-Care Condition: Good Functional capacity at discharge: independent ambulation Overall status at discharge: patient is back to baseline - Discharge Instructions Instructions: Myocardial Infarction (DC), Myocardial Infarction (GEN), Chest Pain (DC), Left Heart Catheterization (DC) Follow Up With: NONE,PCP [Primary Care Provider] - - Diet and Activity Activity: increase activity as tolerated Diet: advance to your usual diet, low salt diet <Abimael Francis - Last Filed: 01/31/19 16:35> Date of Encounter: 01/31/19 Time of Encounter: 09:00 Hospital course: Mr. Arnett is a 53 year old male - Time Spent with Patient I discussed the patient case with Dr. Gonzalez, primary nurse, and MDR team. Additionally, I discussed the case with cardiology. I also saw the patient independently and examined him myself. Patient felt great this morning and back to baseline. His exam was benign and unremarkable. Patient will be discharged home today with close cardiology follow-up. I confirmed discharge plans with cardiology prior to discharge. Date of admission: 01/29/19 16:23 Primary care physician: PCP NONE Consults: 01/29/19 08:24 Consult to Cardiology [CONS] Routine Comment: Consulting Provider: Chandler Dorantes Reason for Consult: chest pain on heparin drip Call Completed: Yes 01/30/19 08:32 Consult to Cardiac Rehabilitation-Phase1 [CONS] Routine Comment: Reason for Consult: NSTEMI Call Completed: No - Constitutional Vitals: Temp Pulse Resp BP Pulse Ox 98.3 F 98 19 101/67 98 01/31/19 12:31 01/31/19 12:19 01/31/19 12:19 01/31/19 12:19 01/31/19 12:19 General appearance: Present: A&O X 3, no acute distress - ENT ENT exam: Present: mucous membranes moist, normal exam - Neck Neck exam general surgery: Present: supple - Respiratory Respiratory exam: Present: CTAB. Absent: chest wall tenderness, rales, rhonchi, wheezes - Cardiovascular Cardiovascular exam: Present: RRR, +S1, +S2. Absent: diastolic murmur, systolic murmur - GI/Abdominal GI/Abdominal exam: Present: normal bowel sounds, soft. Absent: guarding, hepatomegaly, mass, rebound, splenomegaly, tenderness - Extremities Exam Extremities exam: Present: normal capillary refill, warm, radial pulses palpable and symmetrical. Absent: calf tenderness, pedal edema, tenderness - Back Exam Back exam: Absent: CVA tenderness (L), CVA tenderness (R) - Neurological Exam Neurological exam: Present: alert, CN II-XII intact, oriented X3, no focal deficits - Attending Attestation As noted above, I saw patient independently in addition to the whole ICU team. I discussed with cardiology and confirmed discharge plans. Patient was discharged home from ICU today with close cardiology follow-up. Other than my documented exam findings and above notes, I agree with Dr. Gonzalez's assessment and plan.
[2019-01-31 12:29] VITALS: BP 101/67
--- NOTE | 2019-02-01 11:20 | Electrocardiograph Report ---
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
--- NOTE | 2019-02-01 11:21 | Electrocardiograph Report ---
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
--- NOTE | 2019-02-01 15:00 | Electrocardiograph Report ---
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
== END 2019-01-31 14:25 | disposition home or self-care (01) | DRG 246 ==
LOC: EMEROOARM 15:55 → 3BNU 15:55 → ICNU 01-30 17:51
PROVIDERS: ADMIT Internal Medicine; ATTEND Internal Medicine

== ENCOUNTER 2020-02-27 06:55 | Inpatient (IN) ==
[2020-02-27] MEDS ORDERED: Nitroglycerin 0.4 MG TAB.SUBL SL PRN (07:45)
[2020-02-27] MEDS ORDERED: Aspirin 81 MG TAB.CHEW PO ONE (07:45)
[2020-02-27 07:54] LABS: Basophils # 0.1 K/mcL (0.0-0.2); Basophils % 0.9 %; Eosinophils # 0.3 K/mcL (0.0-0.6); Eosinophils % 4.6 %; Hematocrit 45.7 % (37.5-50.1); Hemoglobin 15.2 g/dL (12.9-16.9); Immature Granulocytes % 0.3 % (0-4); Lymphocytes # 2.1 K/mcL (0.6-4.6); Lymphocytes % 30.5 %; Mean Corpuscular HGB Conc 33.3 g/dL (31.6-35.5); Mean Corpuscular Volume 93.3 fL (83.0-100.0); Monocytes # 0.5 K/mcL (0.0-1.3); Monocytes % 7.2 %; Neutrophils # 3.9 K/mcL (1.6-8.9); Platelet Count 183 K/mcL (140-400); Red Cell Distribution Width 12.4 % (11.5-14.5); Segmented Neutrophils % 56.5 %; White Blood Count 6.8 K/mcL (4.3-11.1)
[2020-02-27 08:06] LABS: BUN/Creatinine Ratio 16 (6-26); Blood Urea Nitrogen 17 mg/dL (6-20); Calcium 9.5 mg/dL (8.6-10.3); Carbon Dioxide 26 mEq/L (23-29); Chloride 106 mEq/L (98-107); Glucose 151 mg/dL (70-105); Osmolality,Calculated 294 (280-300); Potassium 3.7 mEq/L (3.5-5.1); Sodium 140 mEq/L (136-145); eGFR For African Americans > 60 (> 60); eGFR For Non-African Americans > 60 (> 60)
[2020-02-27 08:09] LABS: Troponin I 0.06 ng/mL (< 0.04)
[2020-02-27] MEDS ORDERED: Ondansetron 4 MG/2 ML VIAL IVP PRN (08:38)
[2020-02-27] MEDS ORDERED: Naloxone 0.4 MG/ML INJ IVP PRN (08:38)
[2020-02-27] MEDS ORDERED: Perflutren Lipid Microsphere 1.3 ML in 0.9 % Sodium Chloride 8.7 ML IVP PRN (08:41)
[2020-02-27] MEDS ORDERED: *HR* Heparin 5,000 UNIT/ML VIAL IVP PRN (09:04)
[2020-02-27] MEDS ORDERED: *HR* Heparin 5,000 UNIT/ML VIAL IVP ONE (09:04)
[2020-02-27] MEDS ORDERED: *HR* Labetalol 20 MG/4 ML SYRINGE IVP ONE (09:05)
[2020-02-27 09:15] LABS: Prothrombin Time 11.5 Seconds (9.4-12.1)
[2020-02-27 09:17] LABS: Activated Partial Thrombo Time 32.2 Seconds (26.0-36.0)
[2020-02-27 09:18] LABS: Heparin anti-factor XA UFH < 0.04 IU/mL (0.30-0.70)
[2020-02-27 10:37] LABS: Hematocrit 42.9 % (37.5-50.1); Mean Corpuscular HGB Conc 32.6 g/dL (31.6-35.5); Mean Corpuscular Hemoglobin 29.9 pg (28.0-33.3); Mean Corpuscular Volume 91.5 fL (83.0-100.0); Mean Platelet Volume 10.1 fL (9.4-12.4); Platelet Count 186 K/mcL (140-400); Red Blood Count 4.69 M/mcL (4.19-5.50); Red Cell Distribution Width 12.4 % (11.5-14.5)
[2020-02-27] MEDS: Heparin 25,000UNIT/250ML 1/2NS 25,000 UNIT/250 ML IV.SOLN IVC SCH (10:59)
[2020-02-27] MEDS: Metoprolol XL (24 HR) Succ 25 MG TAB.ER.24H PO SCH (12:54)
[2020-02-27] MEDS: *HR* Heparin 5,000 UNIT/ML VIAL IVP PRN (20:16)
[2020-02-27] MEDS ORDERED: predniSONE 20 MG TABLET PO ONE (21:00)
[2020-02-28 04:22] LABS: Basophils % 0.4 %; Eosinophils % 0.1 %; Hematocrit 46.8 % (37.5-50.1); Immature Granulocytes % 0.4 % (0-4); Lymphocytes # 0.8 K/mcL (0.6-4.6); Lymphocytes % 10.3 %; Mean Corpuscular HGB Conc 33.8 g/dL (31.6-35.5); Mean Corpuscular Hemoglobin 30.9 pg (28.0-33.3); Mean Corpuscular Volume 91.6 fL (83.0-100.0); Mean Platelet Volume 10.1 fL (9.4-12.4); Monocytes # 0.1 K/mcL (0.0-1.3); Monocytes % 1.2 %; Neutrophils # 6.7 K/mcL (1.6-8.9); Platelet Count 191 K/mcL (140-400); Red Blood Count 5.11 M/mcL (4.19-5.50); Red Cell Distribution Width 12.4 % (11.5-14.5); Segmented Neutrophils % 87.6 %; White Blood Count 7.6 K/mcL (4.3-11.1)
[2020-02-28 04:26] LABS: Hemoglobin 15.8 g/dL (12.9-16.9)
[2020-02-28 04:43] LABS: BUN/Creatinine Ratio 19 (6-26); Blood Urea Nitrogen 15 mg/dL (6-20); Calcium 9.3 mg/dL (8.6-10.3); Carbon Dioxide 21 mEq/L (23-29); Chloride 104 mEq/L (98-107); Cholesterol 201 mg/dL (< 200); Glucose 216 mg/dL (70-105); HDL Cholesterol 40 mg/dL (40-59); LDL Cholesterol,Calculated 140 mg/dL (< 100); Magnesium 1.9 mg/dL (1.6-2.6); Osmolality,Calculated 289 (280-300); Potassium 4.5 mEq/L (3.5-5.1); Sodium 136 mEq/L (136-145); Triglycerides 103 mg/dL (< 150); eGFR For African Americans > 60 (> 60); eGFR For Non-African Americans > 60 (> 60)
[2020-02-28] MEDS: *HR* Heparin 5,000 UNIT/ML VIAL IVP PRN (07:04)
[2020-02-28] MEDS: Aspirin Enteric Coated 81 MG Tablet PO SCH (07:50)
[2020-02-28] MEDS: Metoprolol XL (24 HR) Succ 25 MG TAB.ER.24H PO SCH (07:51)
[2020-02-28] MEDS: Heparin 25,000UNIT/250ML 1/2NS 25,000 UNIT/250 ML IV.SOLN IVC SCH (07:52)
[2020-02-28] MEDS ORDERED: predniSONE 20 MG TABLET PO ONE (08:00)
[2020-02-28 08:53] LABS: Estimated Average Glucose 151 mg/dl
[2020-02-28] MEDS ORDERED: 0.9 % Sodium Chloride 1,000 ML ONE (13:25)
[2020-02-28] MEDS ORDERED: Nitroglycerin 1,000 MCG/10 ML VIAL IV ONE (13:26)
[2020-02-28] MEDS ORDERED: Heparin 1,000 UNITS/500 mL 500 ML ONE (13:26)
[2020-02-28] MEDS ORDERED: ISOVUE-370 200 ML INFUS..BTL ONE ×2 (13:26→14:42)
[2020-02-28] MEDS ORDERED: *HR* Heparin 10,000 UNIT/10 ML VIAL ONE (13:26)
[2020-02-28] MEDS ORDERED: *HR* FentaNYL (PF) 100 MCG/2 ML VIAL ONE (13:49)
[2020-02-28] MEDS ORDERED: *HR* Midazolam HCl 2 MG/2 ML VIAL ONE (13:49)
[2020-02-28] MEDS: Acetaminophen 325 MG TABLET PO PRN (16:07)
[2020-02-29] MEDS: Acetaminophen 325 MG TABLET PO PRN (00:02)
[2020-02-29 01:14] LABS: Basophils % 0.2 %; Eosinophils % 0.2 %; Hematocrit 43.3 % (37.5-50.1); Hemoglobin 14.9 g/dL (12.9-16.9); Immature Granulocytes % 0.4 % (0-4); Lymphocytes # 2.3 K/mcL (0.6-4.6); Lymphocytes % 15.3 %; Mean Corpuscular HGB Conc 34.4 g/dL (31.6-35.5); Mean Corpuscular Hemoglobin 31.2 pg (28.0-33.3); Mean Corpuscular Volume 90.8 fL (83.0-100.0); Mean Platelet Volume 9.5 fL (9.4-12.4); Monocytes % 6.6 %; Neutrophils # 11.8 K/mcL (1.6-8.9); Platelet Count 195 K/mcL (140-400); Red Blood Count 4.77 M/mcL (4.19-5.50); Red Cell Distribution Width 12.5 % (11.5-14.5); Segmented Neutrophils % 77.3 %; White Blood Count 15.3 K/mcL (4.3-11.1)
[2020-02-29 01:33] LABS: BUN/Creatinine Ratio 18 (6-26); Blood Urea Nitrogen 16 mg/dL (6-20); Calcium 8.8 mg/dL (8.6-10.3); Carbon Dioxide 22 mEq/L (23-29); Chloride 104 mEq/L (98-107); Glucose 185 mg/dL (70-105); Magnesium 1.8 mg/dL (1.6-2.6); Osmolality,Calculated 288 (280-300); Phosphorous 2.5 mg/dL (2.7-4.5); Potassium 3.7 mEq/L (3.5-5.1); Sodium 136 mEq/L (136-145); eGFR For African Americans > 60 (> 60); eGFR For Non-African Americans > 60 (> 60)
[2020-02-29 07:42] VITALS: BP 107/70
[2020-02-29] MEDS: Aspirin Enteric Coated 81 MG Tablet PO SCH (08:01)
[2020-02-29] MEDS: Metoprolol XL (24 HR) Succ 25 MG TAB.ER.24H PO SCH (08:02)
[2020-02-29] MEDS: Heparin 25,000UNIT/250ML 1/2NS 25,000 UNIT/250 ML IV.SOLN IVC SCH (11:10)
== END 2020-02-29 13:12 | disposition home or self-care (01) | DRG 247 ==
LOC: CDU 06:55 → EMEROOARM 06:55 → SUATTDRO 08:52 → CDU 09:18 → 3BNU 18:48
PROVIDERS: ADMIT Internal Medicine; ATTEND Internal Medicine

== ENCOUNTER 2020-05-29 16:33 | Inpatient (IN) ==
[2020-05-29] MEDS ORDERED: 0.9 % Sodium Chloride 1,000 ML ONE ×3 (16:47→17:21)
[2020-05-29] MEDS ORDERED: *HR* Ticagrelor 90 MG TABLET ONE (16:47)
[2020-05-29] MEDS ORDERED: *HR* Ticagrelor 90 MG TABLET PO ONE (16:47)
[2020-05-29] MEDS ORDERED: *HR* Heparin 5,000 UNIT/ML VIAL ONE (16:47)
[2020-05-29] MEDS ORDERED: Aspirin 81 MG TAB.CHEW PO ONE (16:47)
[2020-05-29] MEDS ORDERED: Aspirin 81 MG TAB.CHEW ONE (16:47)
[2020-05-29] MEDS ORDERED: *HR* Heparin 5,000 UNIT/ML VIAL IVP STA (16:49)
[2020-05-29 17:09] LABS: Basophils # 0.1 K/mcL (0.0-0.2); Basophils % 0.8 %; Eosinophils # 0.1 K/mcL (0.0-0.6); Eosinophils % 2.2 %; Hematocrit 42.9 % (37.5-50.1); Hemoglobin 14.2 g/dL (12.9-16.9); Immature Granulocytes % 0.6 % (0-4); Lymphocytes # 1.6 K/mcL (0.6-4.6); Mean Corpuscular HGB Conc 33.1 g/dL (31.6-35.5); Mean Corpuscular Volume 90.5 fL (83.0-100.0); Mean Platelet Volume 9.9 fL (9.4-12.4); Monocytes # 0.5 K/mcL (0.0-1.3); Monocytes % 7.7 %; Neutrophils # 4.2 K/mcL (1.6-8.9); Platelet Count 199 K/mcL (140-400); Red Blood Count 4.74 M/mcL (4.19-5.50); Red Cell Distribution Width 12.2 % (11.5-14.5); Segmented Neutrophils % 63.7 %; White Blood Count 6.5 K/mcL (4.3-11.1)
[2020-05-29 17:16] LABS: INR 1.1; Prothrombin Time 12.6 Seconds (9.4-12.1)
[2020-05-29 17:19] LABS: Activated Partial Thrombo Time 27.2 Seconds (26.0-36.0)
[2020-05-29] MEDS ORDERED: *HR* FentaNYL (PF) 100 MCG/2 ML VIAL ONE (17:19)
[2020-05-29] MEDS ORDERED: *HR* Midazolam HCl 2 MG/2 ML VIAL ONE (17:19)
[2020-05-29] MEDS ORDERED: *HR* Heparin 10,000 UNIT/10 ML VIAL ONE (17:20)
[2020-05-29] MEDS ORDERED: Nitroglycerin 1,000 MCG/10 ML VIAL IV ONE (17:20)
[2020-05-29] MEDS ORDERED: Heparin 1,000 UNITS/500 mL 500 ML ONE (17:20)
[2020-05-29] MEDS ORDERED: ISOVUE-370 200 ML INFUS..BTL ONE (17:20)
[2020-05-29 17:42] LABS: BUN/Creatinine Ratio 14 (6-26); Blood Urea Nitrogen 12 mg/dL (6-20); Carbon Dioxide 26 mEq/L (23-29); Chloride 104 mEq/L (98-107); Glucose 140 mg/dL (70-105); Magnesium 1.6 mg/dL (1.6-2.6); Osmolality,Calculated 292 (280-300); Potassium 3.8 mEq/L (3.5-5.1); Sodium 140 mEq/L (136-145); Troponin I 0.04 ng/mL (< 0.04); eGFR For African Americans > 60 (> 60); eGFR For Non-African Americans > 60 (> 60)
[2020-05-29] MEDS ORDERED: methylPREDNISolone 125 MG/2 ML VIAL ONE (17:44)
[2020-05-29] MEDS ORDERED: Furosemide 40 MG/4 ML VIAL ONE (18:13)
[2020-05-29] MEDS ORDERED: Perflutren Lipid Microsphere 1.3 ML in 0.9 % Sodium Chloride 8.7 ML IVP PRN (18:31)
[2020-05-29] MEDS: Furosemide 40 MG/4 ML VIAL IVP SCH (20:12)
[2020-05-29] MEDS: *HR* Ticagrelor 90 MG TABLET PO SCH (20:12)
[2020-05-29] MEDS ORDERED: *HR* Dextrose 50 % in Water (Vial) 50 ML VIAL IVP PRN (22:56)
[2020-05-29] MEDS ORDERED: D5% in Water 1,000 ML IVC PRN (22:56)
[2020-05-29] MEDS ORDERED: Dextrose Gel 15 GM/37.5 ML TUBE PO PRN ×2 (22:56)
[2020-05-29] MEDS ORDERED: Ringers Solution, Lactated 1,000 ML IVC ONE (23:34)
[2020-05-30] MEDS ORDERED: Insulin LISPRO 300 UNITS/3 ML VIAL SUBQ SCH
[2020-05-30] MEDS: Valsartan 80 MG TABLET PO SCH (08:41)
[2020-05-30] MEDS: Aspirin 81 MG TAB.CHEW PO SCH (08:42)
[2020-05-30] MEDS: Furosemide 40 MG/4 ML VIAL IVP SCH ×2 (08:43→20:14)
[2020-05-30] MEDS: carvediloL 6.25 MG TABLET PO SCH ×2 (08:43→16:57)
[2020-05-30] MEDS: *HR* Ticagrelor 90 MG TABLET PO SCH ×2 (08:43→20:14)
[2020-05-30] MEDS: Insulin LISPRO 300 UNITS/3 ML VIAL SUBQ SCH ×4 (08:49→21:16)
[2020-05-30] MEDS ORDERED: lisinopriL 5 MG TABLET PO SCH (09:00)
[2020-05-30 12:00] LABS: Basophils % 0.2 %; Hematocrit 41.9 % (37.5-50.1); Hemoglobin 14.4 g/dL (12.9-16.9); Immature Granulocytes % 0.5 % (0-4); Lymphocytes # 0.9 K/mcL (0.6-4.6); Lymphocytes % 7.3 %; Mean Corpuscular HGB Conc 34.4 g/dL (31.6-35.5); Mean Corpuscular Hemoglobin 30.2 pg (28.0-33.3); Mean Corpuscular Volume 87.8 fL (83.0-100.0); Mean Platelet Volume 9.9 fL (9.4-12.4); Monocytes # 0.7 K/mcL (0.0-1.3); Monocytes % 5.5 %; Neutrophils # 10.5 K/mcL (1.6-8.9); Platelet Count 217 K/mcL (140-400); Red Blood Count 4.77 M/mcL (4.19-5.50); Red Cell Distribution Width 12.1 % (11.5-14.5); Segmented Neutrophils % 86.5 %
[2020-05-30 12:03] LABS: White Blood Count 12.1 K/mcL (4.3-11.1)
[2020-05-30 12:18] LABS: BUN/Creatinine Ratio 19 (6-26); Blood Urea Nitrogen 18 mg/dL (6-20); Calcium 9.4 mg/dL (8.6-10.3); Carbon Dioxide 22 mEq/L (23-29); Chloride 100 mEq/L (98-107); Glucose 275 mg/dL (70-105); Osmolality,Calculated 292 (280-300); Potassium 3.8 mEq/L (3.5-5.1); Sodium 135 mEq/L (136-145); eGFR For African Americans > 60 (> 60); eGFR For Non-African Americans > 60 (> 60)
[2020-05-30 12:31] LABS: Troponin I 5.14 ng/mL (< 0.04)
[2020-05-30] MEDS: *HR* Heparin 5,000 UNIT/ML VIAL SQ SCH (16:58)
[2020-05-30 17:48] LABS: Estimated Average Glucose 180 mg/dl; Hemoglobin A1C 7.9 %
[2020-05-31] MEDS: *HR* Heparin 5,000 UNIT/ML VIAL SQ SCH ×2 (05:49→17:05)
[2020-05-31] MEDS: Aspirin 81 MG TAB.CHEW PO SCH (07:38)
[2020-05-31] MEDS: Valsartan 80 MG TABLET PO SCH (07:38)
[2020-05-31] MEDS: *HR* Ticagrelor 90 MG TABLET PO SCH ×3 (07:38→20:38)
[2020-05-31] MEDS: carvediloL 6.25 MG TABLET PO SCH ×2 (07:39→17:06)
[2020-05-31] MEDS: Insulin LISPRO 300 UNITS/3 ML VIAL SUBQ SCH ×4 (08:52→20:28)
[2020-05-31 10:20] LABS: Basophils % 0.4 %; Eosinophils # 0.1 K/mcL (0.0-0.6); Eosinophils % 0.8 %; Hematocrit 43.3 % (37.5-50.1); Hemoglobin 14.9 g/dL (12.9-16.9); Immature Granulocytes % 0.5 % (0-4); Lymphocytes # 2.3 K/mcL (0.6-4.6); Lymphocytes % 23.6 %; Mean Corpuscular HGB Conc 34.4 g/dL (31.6-35.5); Mean Corpuscular Hemoglobin 30.9 pg (28.0-33.3); Mean Corpuscular Volume 89.8 fL (83.0-100.0); Mean Platelet Volume 9.9 fL (9.4-12.4); Monocytes # 0.6 K/mcL (0.0-1.3); Monocytes % 6.4 %; Neutrophils # 6.5 K/mcL (1.6-8.9); Platelet Count 198 K/mcL (140-400); Red Blood Count 4.82 M/mcL (4.19-5.50); Red Cell Distribution Width 12.3 % (11.5-14.5); Segmented Neutrophils % 68.3 %; White Blood Count 9.6 K/mcL (4.3-11.1)
[2020-05-31 10:39] LABS: BUN/Creatinine Ratio 26 (6-26); Blood Urea Nitrogen 24 mg/dL (6-20); Calcium 9.1 mg/dL (8.6-10.3); Carbon Dioxide 25 mEq/L (23-29); Chloride 99 mEq/L (98-107); Glucose 228 mg/dL (70-105); Osmolality,Calculated 291 (280-300); Potassium 3.7 mEq/L (3.5-5.1); Sodium 135 mEq/L (136-145); eGFR For African Americans > 60 (> 60); eGFR For Non-African Americans > 60 (> 60)
[2020-05-31 16:10] LABS: BUN/Creatinine Ratio 27 (6-26); Blood Urea Nitrogen 25 mg/dL (6-20); Calcium 9.2 mg/dL (8.6-10.3); Carbon Dioxide 25 mEq/L (23-29); Chloride 100 mEq/L (98-107); Glucose 258 mg/dL (70-105); Magnesium 1.8 mg/dL (1.6-2.6); Osmolality,Calculated 293 (280-300); Potassium 3.9 mEq/L (3.5-5.1); Sodium 135 mEq/L (136-145); eGFR For African Americans > 60 (> 60); eGFR For Non-African Americans > 60 (> 60)
[2020-05-31] MEDS ORDERED: D5% in Water 1,000 ML IVC PRN (19:53)
[2020-05-31] MEDS ORDERED: Dextrose Gel 15 GM/37.5 ML TUBE PO PRN ×2 (19:53)
[2020-05-31] MEDS ORDERED: *HR* Dextrose 50 % in Water (Vial) 50 ML VIAL IVP PRN (19:53)
[2020-05-31] MEDS ORDERED: Insulin LISPRO 300 UNITS/3 ML VIAL SUBQ SCH (21:00)
[2020-06-01] MEDS ORDERED: *HR* Heparin 5,000 UNIT/ML VIAL SQ SCH (06:00)
[2020-06-01] MEDS ORDERED: carvediloL 6.25 MG TABLET PO SCH (08:00)
[2020-06-01 08:19] LABS: BUN/Creatinine Ratio 23 (6-26); Blood Urea Nitrogen 18 mg/dL (6-20); Calcium 9.1 mg/dL (8.6-10.3); Carbon Dioxide 23 mEq/L (23-29); Chloride 102 mEq/L (98-107); Glucose 145 mg/dL (70-105); Magnesium 1.9 mg/dL (1.6-2.6); Osmolality,Calculated 284 (280-300); Potassium 3.9 mEq/L (3.5-5.1); Sodium 135 mEq/L (136-145); eGFR For African Americans > 60 (> 60); eGFR For Non-African Americans > 60 (> 60)
[2020-06-01] MEDS ORDERED: Valsartan 80 MG TABLET PO SCH (09:00)
[2020-06-01] MEDS ORDERED: Aspirin 81 MG TAB.CHEW PO SCH (09:00)
[2020-06-01 09:13] LABS: Troponin I 2.56 ng/mL (< 0.04)
[2020-06-01] MEDS: *HR* Ticagrelor 90 MG TABLET PO SCH (09:27)
[2020-06-01] MEDS: Insulin LISPRO 300 UNITS/3 ML VIAL SUBQ SCH ×2 (09:28→13:32)
[2020-06-01 13:34] VITALS: BP 105/68
== END 2020-06-01 14:42 | disposition home or self-care (01) ==
LOC: EMEROOARM 16:33 → 2NENU 17:51
PROVIDERS: ADMIT Internal Medicine; ATTEND Internal Medicine

== ENCOUNTER 2020-08-25 21:05 | Observation (INO) ==
[2020-08-25 22:36] LABS: INR 1.2; Prothrombin Time 13.7 Seconds (9.4-12.1)
[2020-08-25 22:56] LABS: Basophils # 0.1 K/mcL (0.0-0.2); Eosinophils # 0.1 K/mcL (0.0-0.6); Hemoglobin 13.4 g/dL (12.9-16.9); Immature Platelets 2.5 % (1.1-6.1); Mean Corpuscular HGB Conc 33.5 g/dL (31.6-35.5); Mean Corpuscular Hemoglobin 31.5 pg (28.0-33.3); Mean Corpuscular Volume 93.9 fL (83.0-100.0); Mean Platelet Volume 10.8 fL (9.4-12.4); Platelet Count 157 K/mcL (140-400); Red Blood Count 4.26 M/mcL (4.19-5.50); White Blood Count 5.2 K/mcL (4.3-11.1)
[2020-08-25 22:59] LABS: Alanine Aminotransferase 19 Units/L (7-52); Albumin 4.5 g/dL (3.5-5.7); Albumin/Globulin Ratio 1.7 (1.1-2.2); Alkaline Phosphatase 42 Units/L (34-104); Aspartate Amino Transferase 23 Units/L (13-39); BUN/Creatinine Ratio 19 (6-26); Bilirubin,Direct 0.1 mg/dL (0.0-0.2); Bilirubin,Indirect 0.5 mg/dL (0.0-1.0); Bilirubin,Total 0.6 mg/dL (0.3-1.0); Blood Urea Nitrogen 18 mg/dL (6-20); Calcium 9.1 mg/dL (8.6-10.3); Carbon Dioxide 24 mEq/L (23-29); Chloride 105 mEq/L (98-107); Globulin 2.6 g/dL (2.4-3.5); Glucose 151 mg/dL (70-105); Osmolality,Calculated 291 (280-300); Sodium 138 mEq/L (136-145); Total Protein 7.1 g/dL (6.4-8.9); Troponin I 0.03 ng/mL (< 0.04); eGFR For African Americans > 60 (> 60); eGFR For Non-African Americans > 60 (> 60)
[2020-08-25 23:31] LABS: Lymphocytes # 1.9 K/mcL (0.6-4.6); Neutrophils # 3.1 K/mcL (1.6-8.9)
[2020-08-25 23:32] LABS: Plasma Cells Present (Not Present); Platelet Estimate Normal (Normal)
[2020-08-25] MEDS ORDERED: Melatonin 3 MG TABLET PO PRN (23:35)
[2020-08-25] MEDS ORDERED: Naloxone 0.4 MG/ML INJ IVP PRN (23:35)
[2020-08-25] MEDS ORDERED: Ondansetron 4 MG/2 ML VIAL IVP PRN (23:35)
[2020-08-26] MEDS ORDERED: Nitroglycerin 0.4 MG TAB.SUBL SL PRN (02:28)
[2020-08-26] MEDS ORDERED: *HR* Dextrose 50 % in Water (Vial) 50 ML VIAL IVP PRN (02:31)
[2020-08-26] MEDS ORDERED: D5% in Water 1,000 ML IVC PRN (02:31)
[2020-08-26] MEDS ORDERED: Dextrose Gel 15 GM/37.5 ML TUBE PO PRN ×2 (02:31)
[2020-08-26] MEDS ORDERED: hydrOXYzine pamoate 25 MG CAPSULE PO PRN (02:37)
[2020-08-26] MEDS ORDERED: Apixaban 5 MG TABLET PO SCH (02:45)
[2020-08-26] MEDS ORDERED: Melatonin 3 MG TABLET PO SCH (03:15)
[2020-08-26] MEDS ORDERED: Insulin LISPRO 300 UNITS/3 ML VIAL SUBQ SCH (06:00)
[2020-08-26 06:01] LABS: Hematocrit 39.8 % (37.5-50.1); Hemoglobin 12.9 g/dL (12.9-16.9); Mean Corpuscular HGB Conc 32.4 g/dL (31.6-35.5); Mean Corpuscular Hemoglobin 30.8 pg (28.0-33.3); Mean Platelet Volume 10.1 fL (9.4-12.4); Platelet Count 167 K/mcL (140-400); Red Blood Count 4.19 M/mcL (4.19-5.50); Red Cell Distribution Width 12.9 % (11.5-14.5); White Blood Count 6.6 K/mcL (4.3-11.1)
[2020-08-26 06:25] LABS: BUN/Creatinine Ratio 20 (6-26); Blood Urea Nitrogen 20 mg/dL (6-20); Calcium 9.1 mg/dL (8.6-10.3); Carbon Dioxide 26 mEq/L (23-29); Chloride 108 mEq/L (98-107); Glucose 129 mg/dL (70-105); Osmolality,Calculated 298 (280-300); Sodium 142 mEq/L (136-145); Troponin I 0.03 ng/mL (< 0.04); eGFR For African Americans > 60 (> 60); eGFR For Non-African Americans > 60 (> 60)
[2020-08-26] MEDS ORDERED: Valsartan 80 MG TABLET PO SCH (09:00)
[2020-08-26] MEDS ORDERED: Metoprolol XL (24 HR) Succ 25 MG TAB.ER.24H PO SCH (09:00)
[2020-08-26] MEDS ORDERED: Spironolactone 12.5 MG TABLET PO SCH (09:00)
[2020-08-26 10:59] VITALS: BP 125/87
[2020-08-26] MEDS ORDERED: Metoprolol XL (24 HR) Succ 50 MG TAB.ER.24H PO SCH (21:00)
== END 2020-08-26 16:41 | disposition home or self-care (01) ==
LOC: 3BNU 21:05 → EMEROOARM 21:05 → SUATTDRO 23:43 → 3BNU 08-26 01:05
PROVIDERS: ADMIT Student in an Organized Health Care Education/Training Program; ATTEND Internal Medicine

== ENCOUNTER 2021-03-16 14:17 | Inpatient (IN) ==
[2021-03-16 15:56] LABS: Basophils % 0.7 %; Eosinophils # 0.2 K/mcL (0.0-0.6); Eosinophils % 3.9 %; Hematocrit 41.5 % (37.5-50.1); Hemoglobin 14.7 g/dL (12.9-16.9); Immature Granulocytes % 0.3 % (0-4); Lymphocytes # 1.7 K/mcL (0.6-4.6); Lymphocytes % 29.2 %; Mean Corpuscular HGB Conc 35.4 g/dL (31.6-35.5); Mean Corpuscular Hemoglobin 32.2 pg (28.0-33.3); Mean Corpuscular Volume 90.8 fL (83.0-100.0); Mean Platelet Volume 9.7 fL (9.4-12.4); Monocytes # 0.5 K/mcL (0.0-1.3); Monocytes % 7.9 %; Neutrophils # 3.4 K/mcL (1.6-8.9); Platelet Count 180 K/mcL (140-400); Red Blood Count 4.57 M/mcL (4.19-5.50); Red Cell Distribution Width 12.3 % (11.5-14.5); White Blood Count 5.8 K/mcL (4.3-11.1)
[2021-03-16 16:06] LABS: Prothrombin Time 10.7 Seconds (9.4-12.1)
[2021-03-16 16:08] LABS: Activated Partial Thrombo Time 29.9 Seconds (26.0-36.0)
[2021-03-16 16:15] LABS: Blood Urea Nitrogen 14 mg/dL (6-20); Carbon Dioxide 24 mEq/L (23-29); Chloride 105 mEq/L (98-107); Potassium 3.7 mEq/L (3.5-5.1); Sodium 138 mEq/L (136-145)
[2021-03-16 16:16] LABS: Alanine Aminotransferase 20 Units/L (7-52); Albumin 4.6 g/dL (3.5-5.7); Albumin/Globulin Ratio 1.8 (1.1-2.2); Alkaline Phosphatase 43 Units/L (34-104); Aspartate Amino Transferase 18 Units/L (13-39); BUN/Creatinine Ratio 16 (6-26); Bilirubin,Direct 0.2 mg/dL (0.0-0.2); Bilirubin,Indirect 1.1 mg/dL (0.0-1.0); Bilirubin,Total 1.3 mg/dL (0.3-1.0); Calcium 9.4 mg/dL (8.6-10.3); Globulin 2.5 g/dL (2.4-3.5); Glucose 167 mg/dL (70-105); Lipase 25 Units/L (11-82); Osmolality,Calculated 290 (280-300); Total Protein 7.1 g/dL (6.4-8.9); eGFR For African Americans > 60 (> 60); eGFR For Non-African Americans > 60 (> 60)
[2021-03-16 16:41] LABS: Troponin I 0.08 ng/mL (< 0.04)
[2021-03-16] MEDS ORDERED: Naloxone 0.4 MG/ML INJ IVP PRN (18:51)
[2021-03-16] MEDS ORDERED: Perflutren Lipid Microsphere 1.3 ML in 0.9 % Sodium Chloride 8.7 ML IVP PRN (19:08)
[2021-03-16] MEDS ORDERED: *HR* Heparin 5,000 UNIT/ML VIAL IVP PRN (19:23)
[2021-03-16] MEDS: Heparin 25,000UNIT/250ML 1/2NS 25,000 UNIT/250 ML IV.SOLN IVC SCH (22:41)
[2021-03-16] MEDS: Melatonin 3 MG TABLET PO PRN (23:29)
[2021-03-17 05:38] LABS: Basophils # 0.1 K/mcL (0.0-0.2); Basophils % 0.9 %; Eosinophils # 0.3 K/mcL (0.0-0.6); Eosinophils % 6.2 %; Hematocrit 41.9 % (37.5-50.1); Hemoglobin 14.1 g/dL (12.9-16.9); Immature Granulocytes % 0.5 % (0-4); Lymphocytes # 1.9 K/mcL (0.6-4.6); Lymphocytes % 34.5 %; Mean Corpuscular HGB Conc 33.7 g/dL (31.6-35.5); Mean Corpuscular Hemoglobin 31.1 pg (28.0-33.3); Mean Corpuscular Volume 92.5 fL (83.0-100.0); Mean Platelet Volume 9.8 fL (9.4-12.4); Monocytes # 0.6 K/mcL (0.0-1.3); Monocytes % 10.2 %; Neutrophils # 2.6 K/mcL (1.6-8.9); Platelet Count 171 K/mcL (140-400); Red Blood Count 4.53 M/mcL (4.19-5.50); Red Cell Distribution Width 12.6 % (11.5-14.5); Segmented Neutrophils % 47.7 %; White Blood Count 5.5 K/mcL (4.3-11.1)
[2021-03-17 05:47] LABS: Activated Partial Thrombo Time 34.8 Seconds (26.0-36.0)
[2021-03-17 06:18] LABS: BUN/Creatinine Ratio 14 (6-26); Blood Urea Nitrogen 14 mg/dL (6-20); Calcium 8.9 mg/dL (8.6-10.3); Carbon Dioxide 27 mEq/L (23-29); Chloride 107 mEq/L (98-107); Glucose 135 mg/dL (70-105); Osmolality,Calculated 295 (280-300); Phosphorous 3.4 mg/dL (2.7-4.5); Potassium 3.9 mEq/L (3.5-5.1); Sodium 141 mEq/L (136-145); Troponin I 0.07 ng/mL (< 0.04); eGFR For African Americans > 60 (> 60); eGFR For Non-African Americans > 60 (> 60)
[2021-03-17] MEDS: *HR* Heparin 5,000 UNIT/ML VIAL IVP PRN ×3 (06:28→22:30)
[2021-03-17 06:49] LABS: Magnesium 1.9 mg/dL (1.6-2.6)
[2021-03-17] MEDS ORDERED: Isosorbide MONOnitrate (24 HR) 30 MG TAB.ER.24H PO SCH (09:00)
[2021-03-17] MEDS: Acetaminophen 325 MG TABLET PO PRN (09:01)
[2021-03-17] MEDS: Aspirin Enteric Coated 81 MG Tablet PO SCH (13:09)
[2021-03-17] MEDS: Metoprolol XL (24 HR) Succ 50 MG TAB.ER.24H PO SCH (20:00)
[2021-03-17] MEDS: Heparin 25,000UNIT/250ML 1/2NS 25,000 UNIT/250 ML IV.SOLN IVC SCH (20:00)
[2021-03-17] MEDS: Melatonin 3 MG TABLET PO PRN (22:32)
[2021-03-18 05:03] LABS: Basophils # 0.1 K/mcL (0.0-0.2); Basophils % 1.5 %; Eosinophils # 0.4 K/mcL (0.0-0.6); Eosinophils % 6.2 %; Hematocrit 41.3 % (37.5-50.1); Hemoglobin 14.2 g/dL (12.9-16.9); Immature Granulocytes % 0.5 % (0-4); Lymphocytes # 2.1 K/mcL (0.6-4.6); Lymphocytes % 35.1 %; Mean Corpuscular HGB Conc 34.4 g/dL (31.6-35.5); Mean Corpuscular Hemoglobin 31.6 pg (28.0-33.3); Mean Corpuscular Volume 91.8 fL (83.0-100.0); Mean Platelet Volume 9.9 fL (9.4-12.4); Monocytes # 0.5 K/mcL (0.0-1.3); Monocytes % 8.9 %; Neutrophils # 2.8 K/mcL (1.6-8.9); Platelet Count 170 K/mcL (140-400); Red Cell Distribution Width 12.4 % (11.5-14.5); Segmented Neutrophils % 47.8 %; White Blood Count 5.9 K/mcL (4.3-11.1)
[2021-03-18 08:15] LABS: BUN/Creatinine Ratio 19 (6-26); Blood Urea Nitrogen 17 mg/dL (6-20); Calcium 8.9 mg/dL (8.6-10.3); Carbon Dioxide 25 mEq/L (23-29); Chloride 106 mEq/L (98-107); Glucose 153 mg/dL (70-105); Osmolality,Calculated 289 (280-300); Sodium 137 mEq/L (136-145); eGFR For African Americans > 60 (> 60); eGFR For Non-African Americans > 60 (> 60)
[2021-03-18] MEDS: Furosemide 20 MG TABLET PO SCH (08:39)
[2021-03-18] MEDS: Spironolactone 25 MG TABLET PO SCH (08:39)
[2021-03-18] MEDS: Metoprolol XL (24 HR) Succ 50 MG TAB.ER.24H PO SCH ×2 (08:39→21:59)
[2021-03-18] MEDS: Aspirin Enteric Coated 81 MG Tablet PO SCH (08:39)
[2021-03-18] MEDS: Acetaminophen 325 MG TABLET PO PRN (08:40)
[2021-03-18] MEDS: Heparin 25,000UNIT/250ML 1/2NS 25,000 UNIT/250 ML IV.SOLN IVC SCH (11:45)
[2021-03-18] MEDS ORDERED: *HR* FentaNYL (PF) 100 MCG/2 ML VIAL ONE (12:56)
[2021-03-18] MEDS ORDERED: 0.9 % Sodium Chloride 2,000 ML ONE (12:56)
[2021-03-18] MEDS ORDERED: *HR* Midazolam HCl 2 MG/2 ML VIAL ONE (12:56)
[2021-03-18] MEDS ORDERED: Heparin 1,000 UNITS/500 mL 500 ML ONE (12:57)
[2021-03-18] MEDS ORDERED: ISOVUE-370 200 ML INFUS..BTL ONE (12:57)
[2021-03-18] MEDS ORDERED: *HR* Heparin 10,000 UNIT/10 ML VIAL ONE (12:57)
[2021-03-18] MEDS ORDERED: Nitroglycerin 1,000 MCG/5 ML VIAL IV ONE (12:57)
[2021-03-18] MEDS ORDERED: methylPREDNISolone 125 MG/2 ML VIAL ONE (13:19)
[2021-03-18] MEDS ORDERED: Tirofiban 12.5 MG/250ML 12.5 MG/250 ML BAG ONE (13:58)
[2021-03-18] MEDS ORDERED: Tirofiban 12.5 MG/250ML 12.5 MG/250 ML BAG IVC SCH (15:00)
[2021-03-18] MEDS: Valsartan 80 MG TABLET PO SCH (15:27)
[2021-03-18] MEDS ORDERED: *HR* LORazepam 2 MG/ML VIAL IVP ONE (22:25)
[2021-03-18] MEDS: Melatonin 3 MG TABLET PO PRN (22:32)
[2021-03-19 07:53] VITALS: BP 137/77; PULSE 58; TEMP 97.8; O2SAT 100
[2021-03-19 08:07] LABS: Basophils % 0.1 %; Hematocrit 42.4 % (37.5-50.1); Hemoglobin 14.9 g/dL (12.9-16.9); Immature Granulocytes % 0.5 % (0-4); Lymphocytes # 1.3 K/mcL (0.6-4.6); Lymphocytes % 9.2 %; Mean Corpuscular HGB Conc 35.1 g/dL (31.6-35.5); Mean Corpuscular Hemoglobin 32.4 pg (28.0-33.3); Mean Corpuscular Volume 92.2 fL (83.0-100.0); Mean Platelet Volume 9.7 fL (9.4-12.4); Monocytes # 0.8 K/mcL (0.0-1.3); Monocytes % 5.7 %; Neutrophils # 11.8 K/mcL (1.6-8.9); Platelet Count 206 K/mcL (140-400); Red Cell Distribution Width 12.5 % (11.5-14.5); Segmented Neutrophils % 84.5 %
[2021-03-19 08:22] LABS: BUN/Creatinine Ratio 20 (6-26); Blood Urea Nitrogen 18 mg/dL (6-20); Calcium 9.5 mg/dL (8.6-10.3); Carbon Dioxide 24 mEq/L (23-29); Chloride 103 mEq/L (98-107); Glucose 188 mg/dL (70-105); Osmolality,Calculated 287 (280-300); Potassium 4.1 mEq/L (3.5-5.1); Sodium 135 mEq/L (136-145); eGFR For African Americans > 60 (> 60); eGFR For Non-African Americans > 60 (> 60)
[2021-03-19] MEDS: Valsartan 80 MG TABLET PO SCH (08:32)
[2021-03-19] MEDS: Isosorbide MONOnitrate (24 HR) 30 MG TAB.ER.24H PO SCH ×2 (08:33→08:36)
[2021-03-19] MEDS: Furosemide 20 MG TABLET PO SCH (08:33)
[2021-03-19] MEDS: Aspirin Enteric Coated 81 MG Tablet PO SCH (08:33)
[2021-03-19] MEDS: Metoprolol XL (24 HR) Succ 50 MG TAB.ER.24H PO SCH (08:33)
[2021-03-19] MEDS: Spironolactone 25 MG TABLET PO SCH (08:33)
[2021-03-19] MEDS ORDERED: FLU Vac QV 21-22 (6Month+)/PF 0.5 ML SYRINGE IM ONE (10:01)
== END 2021-03-19 10:55 | disposition home or self-care (01) | DRG 247 ==
LOC: EMEROOARM 14:17 → 3ANU 14:17 → SUATTDRO 03-17 17:20
PROVIDERS: ADMIT Internal Medicine; ATTEND Internal Medicine

== ENCOUNTER 2021-04-26 11:42 | Inpatient (IN) ==
[2021-04-26] MEDS ORDERED: 0.9 % Sodium Chloride 500 ML IVC ONE (12:29)
[2021-04-26] MEDS ORDERED: Aspirin 81 MG TAB.CHEW PO ONE (12:29)
[2021-04-26] MEDS ORDERED: Isovue-370 500 ML BOTTLE IVP ONE (12:31)
[2021-04-26 13:05] LABS: Basophils # 0.1 K/mcL (0.0-0.2); Basophils % 1.1 %; Eosinophils # 0.2 K/mcL (0.0-0.6); Eosinophils % 4.5 %; Hemoglobin 14.1 g/dL (12.9-16.9); Immature Granulocytes % 0.5 % (0-4); Lymphocytes % 23.5 %; Mean Corpuscular HGB Conc 33.6 g/dL (31.6-35.5); Mean Corpuscular Hemoglobin 31.4 pg (28.0-33.3); Mean Corpuscular Volume 93.5 fL (83.0-100.0); Mean Platelet Volume 9.6 fL (9.4-12.4); Monocytes # 0.5 K/mcL (0.0-1.3); Monocytes % 10.2 %; Neutrophils # 2.7 K/mcL (1.6-8.9); Platelet Count 164 K/mcL (140-400); Red Blood Count 4.49 M/mcL (4.19-5.50); Red Cell Distribution Width 12.2 % (11.5-14.5); Segmented Neutrophils % 60.2 %; White Blood Count 4.4 K/mcL (4.3-11.1)
[2021-04-26 13:13] LABS: Prothrombin Time 11.4 Seconds (9.4-12.1)
[2021-04-26 13:16] LABS: Activated Partial Thrombo Time 31.1 Seconds (26.0-36.0)
[2021-04-26] MEDS ORDERED: methylPREDNISolone 125 MG/2 ML VIAL IVP ONE (13:16)
[2021-04-26 13:18] LABS: Bilirubin,Urine Negative (Negative); Blood,Urine Moderate (Negative); Clarity,Urine Clear (Clear); Color,Urine Yellow (Yellow); Glucose,Urine (UA) >=1000 mg/dL (Normal); Ketones,Urine Negative (Negative); Leukocyte Esterase,Urine Negative (Negative); Mucus,Urine Few per lpf (None-Few); Nitrite,Urine Negative (Negative); PH,Urine 5.5 pH Units (5.0-8.0); Protein,Urine 30 mg/dL (Neg-Trace); Specific Gravity,Urine > 1.030 (1.010-1.025); Urobilinogen,Urine Normal (Normal); WBC,Urine 0-3 per hpf (0-3)
[2021-04-26 13:24] LABS: Alanine Aminotransferase 20 Units/L (7-52); Albumin 4.5 g/dL (3.5-5.7); Albumin/Globulin Ratio 1.7 (1.1-2.2); Alkaline Phosphatase 37 Units/L (34-104); Aspartate Amino Transferase 18 Units/L (13-39); BUN/Creatinine Ratio 19 (6-26); Bilirubin,Direct 0.2 mg/dL (0.0-0.2); Bilirubin,Indirect 0.7 mg/dL (0.0-1.0); Bilirubin,Total 0.9 mg/dL (0.3-1.0); Blood Urea Nitrogen 17 mg/dL (6-20); Calcium 8.9 mg/dL (8.6-10.3); Carbon Dioxide 24 mEq/L (23-29); Chloride 104 mEq/L (98-107); Globulin 2.6 g/dL (2.4-3.5); Glucose 155 mg/dL (70-105); Lipase 18 Units/L (11-82); Osmolality,Calculated 297 (280-300); Potassium 4.3 mEq/L (3.5-5.1); Sodium 141 mEq/L (136-145); Total Protein 7.1 g/dL (6.4-8.9); Troponin I 0.03 ng/mL (< 0.04); eGFR For African Americans > 60 (> 60); eGFR For Non-African Americans > 60 (> 60)
[2021-04-26] MEDS ORDERED: Naloxone 0.4 MG/ML INJ IVP PRN (17:25)
[2021-04-26] MEDS ORDERED: Ondansetron 4 MG/2 ML VIAL IVP PRN (17:25)
[2021-04-26] MEDS: Nitroglycerin 0.4 MG TAB.SUBL SL PRN ×3 (21:05→21:17)
[2021-04-26] MEDS ORDERED: Nitroglycerin 0.4 MG TAB.SUBL SL PRN (21:31)
[2021-04-26] MEDS: Acetaminophen 325 MG TABLET PO PRN (22:10)
[2021-04-26] MEDS: Metoprolol XL (24 HR) Succ 50 MG TAB.ER.24H PO SCH (22:10)
[2021-04-26] MEDS: hydrOXYzine pamoate 25 MG CAPSULE PO PRN (22:14)
[2021-04-26] MEDS: Spironolactone 12.5 MG TABLET PO SCH (22:16)
[2021-04-26] MEDS: Furosemide 20 MG TABLET PO SCH (22:17)
[2021-04-26] MEDS: Valsartan 80 MG TABLET PO SCH (22:17)
[2021-04-26] MEDS: Isosorbide MONOnitrate (24 HR) 60 MG TAB.ER.24H PO SCH (22:17)
[2021-04-26] MEDS ORDERED: *HR* Heparin 5,000 UNIT/ML VIAL IVP PRN ×2 (22:57)
[2021-04-26] MEDS ORDERED: *HR* Heparin 5,000 UNIT/ML VIAL IVP ONE (22:57)
[2021-04-26] MEDS ORDERED: *HR* Metoprolol 5 MG/5 ML VIAL IVP ONE (23:00)
[2021-04-26] MEDS ORDERED: Heparin 25,000 UNIT/250 ML 25,000 UNIT/250 ML IV.SOLN IVC SCH (23:15)
[2021-04-26] MEDS: Melatonin 3 MG TABLET PO SCH (23:54)
[2021-04-27 00:38] LABS: Hematocrit 45.1 % (37.5-50.1); Hemoglobin 15.5 g/dL (12.9-16.9); Mean Corpuscular HGB Conc 34.4 g/dL (31.6-35.5); Mean Corpuscular Hemoglobin 31.6 pg (28.0-33.3); Mean Platelet Volume 9.6 fL (9.4-12.4); Platelet Count 197 K/mcL (140-400); Red Cell Distribution Width 12.2 % (11.5-14.5)
[2021-04-27 00:39] LABS: White Blood Count 10.6 K/mcL (4.3-11.1)
[2021-04-27 00:47] LABS: Heparin anti-factor XA UFH 0.82 IU/mL (0.30-0.70); INR 1.2; Prothrombin Time 13.3 Seconds (9.4-12.1)
[2021-04-27 00:54] LABS: BUN/Creatinine Ratio 20 (6-26); Blood Urea Nitrogen 18 mg/dL (6-20); Calcium 9.5 mg/dL (8.6-10.3); Carbon Dioxide 19 mEq/L (23-29); Chloride 103 mEq/L (98-107); Glucose 249 mg/dL (70-105); Osmolality,Calculated 296 (280-300); Sodium 138 mEq/L (136-145); eGFR For African Americans > 60 (> 60); eGFR For Non-African Americans > 60 (> 60)
[2021-04-27] MEDS ORDERED: *HR* Dextrose 50 % in Water (Syg) 50 ML SYRINGE IVP PRN (08:34)
[2021-04-27] MEDS ORDERED: D5% in Water 1,000 ML IVC PRN (08:34)
[2021-04-27] MEDS ORDERED: Dextrose Gel 15 GM/37.5 ML TUBE PO PRN ×2 (08:34)
[2021-04-27] MEDS: Dapagliflozin Propanediol [Farxiga] 5 MG PO SCH (09:02)
[2021-04-27] MEDS: Spironolactone 12.5 MG TABLET PO SCH (09:06)
[2021-04-27] MEDS: Metoprolol XL (24 HR) Succ 50 MG TAB.ER.24H PO SCH ×2 (09:06→19:59)
[2021-04-27] MEDS: Aspirin Enteric Coated 81 MG Tablet PO SCH (09:06)
[2021-04-27] MEDS: Furosemide 20 MG TABLET PO SCH (09:06)
[2021-04-27] MEDS: hydrOXYzine pamoate 25 MG CAPSULE PO PRN ×2 (09:06→18:38)
[2021-04-27] MEDS: Valsartan 80 MG TABLET PO SCH (09:06)
[2021-04-27] MEDS: Isosorbide MONOnitrate (24 HR) 60 MG TAB.ER.24H PO SCH ×2 (09:07→21:02)
[2021-04-27] MEDS: Cholecalciferol (D-3) 1,000 UNIT (25MCG) TABLET PO SCH (09:07)
[2021-04-27] MEDS: Insulin LISPRO 300 UNITS/3 ML VIAL SUBQ SCH ×2 (11:38→17:35)
[2021-04-27] MEDS ORDERED: ISOVUE-370 200 ML INFUS..BTL ONE ×2 (11:46→13:08)
[2021-04-27] MEDS ORDERED: 0.9 % Sodium Chloride 2,000 ML ONE (11:46)
[2021-04-27] MEDS ORDERED: Heparin 1,000 UNITS/500 mL 500 ML ONE (11:46)
[2021-04-27] MEDS ORDERED: *HR* Heparin 10,000 UNIT/10 ML VIAL ONE (11:46)
[2021-04-27] MEDS ORDERED: Nitroglycerin 1,000 MCG/5 ML VIAL IV ONE (11:46)
[2021-04-27] MEDS ORDERED: *HR* FentaNYL (PF) 100 MCG/2 ML VIAL ONE (12:04)
[2021-04-27] MEDS ORDERED: methylPREDNISolone 125 MG/2 ML VIAL ONE (12:05)
[2021-04-27] MEDS ORDERED: *HR* Midazolam HCl 2 MG/2 ML VIAL ONE (12:05)
[2021-04-27] MEDS ORDERED: Tirofiban 12.5 MG/250ML 12.5 MG/250 ML BAG ONE (12:52)
[2021-04-27] MEDS: Acetaminophen 325 MG TABLET PO PRN (17:34)
[2021-04-27] MEDS: Melatonin 3 MG TABLET PO SCH (22:58)
[2021-04-28] MEDS: Acetaminophen 325 MG TABLET PO PRN (01:26)
[2021-04-28 06:12] LABS: Basophils % 0.1 %; Hematocrit 39.9 % (37.5-50.1); Immature Granulocytes % 0.5 % (0-4); Lymphocytes # 1.6 K/mcL (0.6-4.6); Lymphocytes % 13.2 %; Mean Corpuscular HGB Conc 33.6 g/dL (31.6-35.5); Mean Corpuscular Hemoglobin 31.5 pg (28.0-33.3); Mean Corpuscular Volume 93.7 fL (83.0-100.0); Mean Platelet Volume 9.4 fL (9.4-12.4); Monocytes # 0.8 K/mcL (0.0-1.3); Monocytes % 6.3 %; Neutrophils # 9.6 K/mcL (1.6-8.9); Platelet Count 183 K/mcL (140-400); Red Blood Count 4.26 M/mcL (4.19-5.50); Red Cell Distribution Width 12.4 % (11.5-14.5); Segmented Neutrophils % 79.9 %
[2021-04-28 06:18] LABS: Hemoglobin 13.4 g/dL (12.9-16.9)
[2021-04-28 06:27] LABS: BUN/Creatinine Ratio 24 (6-26); Blood Urea Nitrogen 22 mg/dL (6-20); Carbon Dioxide 26 mEq/L (23-29); Chloride 104 mEq/L (98-107); Sodium 138 mEq/L (136-145); eGFR For African Americans > 60 (> 60); eGFR For Non-African Americans > 60 (> 60)
[2021-04-28 06:28] LABS: Calcium 9.2 mg/dL (8.6-10.3); Glucose 130 mg/dL (70-105); Osmolality,Calculated 291 (280-300)
[2021-04-28] MEDS: Insulin LISPRO 300 UNITS/3 ML VIAL SUBQ SCH ×2 (06:57→10:59)
[2021-04-28] MEDS ORDERED: Perflutren Lipid Microsphere 1.3 ML in 0.9 % Sodium Chloride 8.7 ML IVP PRN (07:30)
[2021-04-28] MEDS: Dapagliflozin Propanediol [Farxiga] 5 MG PO SCH (08:18)
[2021-04-28] MEDS: Valsartan 80 MG TABLET PO SCH (08:23)
[2021-04-28] MEDS: Isosorbide MONOnitrate (24 HR) 60 MG TAB.ER.24H PO SCH (08:23)
[2021-04-28] MEDS: Furosemide 20 MG TABLET PO SCH (08:23)
[2021-04-28] MEDS: Metoprolol XL (24 HR) Succ 50 MG TAB.ER.24H PO SCH (08:23)
[2021-04-28] MEDS: Spironolactone 12.5 MG TABLET PO SCH (08:24)
[2021-04-28] MEDS: Cholecalciferol (D-3) 1,000 UNIT (25MCG) TABLET PO SCH (08:24)
[2021-04-28] MEDS: Aspirin Enteric Coated 81 MG Tablet PO SCH (08:24)
[2021-04-28 10:28] VITALS: BP 126/79; PULSE 66; TEMP 97.6; O2SAT 97
== END 2021-04-28 13:50 | disposition home or self-care (01) | DRG 247 ==
LOC: EMEROOARM 11:42 → 3BNU 11:42 → SUATTDRO 16:22 → 3BNU 16:50
PROVIDERS: ADMIT Student in an Organized Health Care Education/Training Program; ATTEND Internal Medicine

== ENCOUNTER 2021-08-24 00:37 | Observation (INO) ==
[2021-08-24 00:56] LABS: Basophils # 0.1 K/mcL (0.0-0.2); Basophils % 0.8 %; Eosinophils # 0.3 K/mcL (0.0-0.6); Eosinophils % 3.4 %; Hematocrit 45.1 % (37.5-50.1); Hemoglobin 15.4 g/dL (12.9-16.9); Immature Granulocytes % 0.7 % (0-4); Lymphocytes % 26.9 %; Mean Corpuscular HGB Conc 34.1 g/dL (31.6-35.5); Mean Corpuscular Volume 90.7 fL (83.0-100.0); Monocytes # 0.6 K/mcL (0.0-1.3); Monocytes % 7.6 %; Neutrophils # 4.6 K/mcL (1.6-8.9); Platelet Count 175 K/mcL (140-400); Red Blood Count 4.97 M/mcL (4.19-5.50); Red Cell Distribution Width 12.3 % (11.5-14.5); Segmented Neutrophils % 60.6 %; White Blood Count 7.6 K/mcL (4.3-11.1)
[2021-08-24 01:09] LABS: Activated Partial Thrombo Time 32.2 Seconds (26.0-36.0)
[2021-08-24 01:22] LABS: BUN/Creatinine Ratio 14 (6-26); Blood Urea Nitrogen 13 mg/dL (6-20); Calcium 9.1 mg/dL (8.6-10.3); Carbon Dioxide 25 mEq/L (23-29); Chloride 105 mEq/L (98-107); Glucose 167 mg/dL (70-105); Osmolality,Calculated 292 (280-300); Potassium 4.1 mEq/L (3.5-5.1); Sodium 139 mEq/L (136-145); Troponin I < 0.03 ng/mL (< 0.04); eGFR For African Americans > 60 (> 60); eGFR For Non-African Americans > 60 (> 60)
[2021-08-24] MEDS ORDERED: Melatonin 3 MG TABLET PO PRN (02:34)
[2021-08-24] MEDS ORDERED: Naloxone 0.4 MG/ML INJ IVP PRN (02:34)
[2021-08-24] MEDS ORDERED: Dextrose 4 GM Chewable Tablets PO PRN ×2 (02:42)
[2021-08-24] MEDS ORDERED: D5% in Water 1,000 ML IVC PRN (02:42)
[2021-08-24] MEDS ORDERED: *HR* Dextrose 50 % in Water (Syg) 50 ML SYRINGE IVP PRN (02:42)
[2021-08-24] MEDS: Insulin LISPRO 300 UNITS/3 ML VIAL SUBQ SCH ×3 (04:38→17:13)
[2021-08-24] MEDS ORDERED: *HR* Heparin 5,000 UNIT/ML VIAL IVP PRN ×2 (06:30)
[2021-08-24] MEDS ORDERED: *HR* Heparin 5,000 UNIT/ML VIAL IVP ONE (06:30)
[2021-08-24] MEDS: Heparin 25,000UNIT/250ML 1/2NS 25,000 UNIT/250 ML IV.SOLN IVC SCH (07:07)
[2021-08-24 07:23] LABS: Heparin anti-factor XA UFH < 0.04 IU/mL (0.30-0.70)
[2021-08-24 07:24] LABS: Prothrombin Time 11.1 Seconds (9.4-12.1)
[2021-08-24] MEDS: Metoprolol XL (24 HR) Succ 25 MG TAB.ER.24H PO SCH ×2 (08:02→20:53)
[2021-08-24] MEDS: Aspirin Enteric Coated 81 MG Tablet PO SCH (08:02)
[2021-08-24] MEDS ORDERED: 0.9 % Sodium Chloride 1,000 ML ONE ×2 (08:43→11:51)
[2021-08-24] MEDS ORDERED: Nitroglycerin 1,000 MCG/5 ML VIAL IV ONE ×2 (08:44→11:51)
[2021-08-24] MEDS ORDERED: Heparin 1,000 UNITS/500 mL 500 ML ONE ×3 (08:44→15:01)
[2021-08-24] MEDS ORDERED: *HR* Heparin 10,000 UNIT/10 ML VIAL ONE ×3 (08:44→12:05)
[2021-08-24] MEDS ORDERED: ISOVUE-370 200 ML INFUS..BTL ONE ×2 (08:44→13:16)
[2021-08-24] MEDS: predniSONE 20 MG TABLET PO SCH ×2 (09:51→18:04)
[2021-08-24] MEDS ORDERED: *HR* Midazolam HCl 2 MG/2 ML VIAL ONE ×2 (11:50→13:14)
[2021-08-24] MEDS ORDERED: *HR* FentaNYL (PF) 100 MCG/2 ML VIAL ONE ×2 (11:50→13:46)
[2021-08-24] MEDS ORDERED: methylPREDNISolone 125 MG/2 ML VIAL ONE (12:03)
[2021-08-24] MEDS ORDERED: D5% in Water 0 ML ONE (13:26)
[2021-08-24] MEDS ORDERED: Heparin 1,000 UNITS/500 mL 0 ML ONE (14:05)
[2021-08-24] MEDS ORDERED: Tirofiban 12.5 MG/250ML 12.5 MG/250 ML BAG ONE (14:34)
[2021-08-24] MEDS ORDERED: Furosemide 40 MG/4 ML VIAL ONE (14:41)
[2021-08-24] MEDS ORDERED: Tirofiban 12.5 MG/250ML 12.5 MG/250 ML BAG IVC SCH (15:45)
[2021-08-24] MEDS: Acetaminophen 325 MG TABLET PO PRN (18:06)
[2021-08-25] MEDS: Insulin LISPRO 300 UNITS/3 ML VIAL SUBQ SCH ×3 (00:38→11:14)
[2021-08-25] MEDS: Heparin 25,000UNIT/250ML 1/2NS 25,000 UNIT/250 ML IV.SOLN IVC SCH (00:39)
[2021-08-25] MEDS: Acetaminophen 325 MG TABLET PO PRN ×2 (00:52→08:31)
[2021-08-25 01:55] LABS: Basophils % 0.1 %; Hemoglobin 16.6 g/dL (12.9-16.9); Immature Granulocytes % 0.6 % (0-4); Lymphocytes # 0.8 K/mcL (0.6-4.6); Lymphocytes % 7.3 %; Mean Corpuscular HGB Conc 34.6 g/dL (31.6-35.5); Mean Corpuscular Hemoglobin 30.9 pg (28.0-33.3); Mean Corpuscular Volume 89.2 fL (83.0-100.0); Monocytes # 0.3 K/mcL (0.0-1.3); Monocytes % 2.3 %; Platelet Count 207 K/mcL (140-400); Red Blood Count 5.38 M/mcL (4.19-5.50); Red Cell Distribution Width 12.4 % (11.5-14.5); Segmented Neutrophils % 89.7 %
[2021-08-25 01:56] LABS: Neutrophils # 10.2 K/mcL (1.6-8.9); White Blood Count 11.4 K/mcL (4.3-11.1)
[2021-08-25 02:16] LABS: BUN/Creatinine Ratio 17 (6-26); Blood Urea Nitrogen 17 mg/dL (6-20); Calcium 9.6 mg/dL (8.6-10.3); Carbon Dioxide 22 mEq/L (23-29); Chloride 102 mEq/L (98-107); Glucose 216 mg/dL (70-105); Osmolality,Calculated 294 (280-300); Potassium 3.8 mEq/L (3.5-5.1); Sodium 138 mEq/L (136-145); eGFR For African Americans > 60 (> 60); eGFR For Non-African Americans > 60 (> 60)
[2021-08-25 06:32] VITALS: O2SAT 97
[2021-08-25] MEDS: Metoprolol XL (24 HR) Succ 25 MG TAB.ER.24H PO SCH (08:27)
[2021-08-25] MEDS: Aspirin Enteric Coated 81 MG Tablet PO SCH (08:27)
[2021-08-25] MEDS ORDERED: Furosemide 20 MG TABLET PO SCH (09:00)
[2021-08-25] MEDS ORDERED: Isosorbide MONOnitrate (24 HR) 60 MG TAB.ER.24H PO SCH (09:00)
[2021-08-25] MEDS ORDERED: hydrOXYzine pamoate 25 MG CAPSULE PO PRN (09:08)
[2021-08-25 11:14] VITALS: BP 129/86; PULSE 86; TEMP 98.2
== END 2021-08-25 11:52 | disposition home or self-care (01) ==
LOC: 2ANU 00:37 → EMEROOARM 00:37 → SUATTDRO 02:34 → 2ANU 03:10
PROVIDERS: ADMIT Student in an Organized Health Care Education/Training Program; ATTEND Internal Medicine